=== PATIENT | male | born 1965 | race Caucasian/White ===

== ENCOUNTER 2018-01-04 08:11 | Emergency (ER) | payer OTHER, BC ==
[2018-01-04 08:16] VITALS: BP 136/87; TEMP 98.2; BMI 27.8
[2018-01-04] MEDS ORDERED: KETOROLAC TROMETHAMINE 60 MG/2 ML VIAL IM ONE (08:47)
[2018-01-04] MEDS ORDERED: KETOROLAC TROMETHAMINE 30 MG/1 ML VIAL ONE (08:52)
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
[2018-01-04 09:44] VITALS: PULSE 84
== END 2018-01-04 09:59 | disposition home or self-care (01) ==
LOC: JERFT 08:11
PROC: 3E0233Z Introduction of Anti-inflammatory into Muscle, Percutaneous Approach (ICD-10-PCS; principal; 2018-01-04)
DX: T14.8XXA Other injury of unspecified body region, initial encounter (principal); V49.9XXA Car occupant (driver) (passenger) injured in unspecified traffic accident, initial encounter; Y93.89 Activity, other specified; Y92.410 Unspecified street and highway as the place of occurrence of the external cause; I10 Essential (primary) hypertension
CPT/HCPCS: 72100-TC-FY; 99281-25

== ENCOUNTER → 2018-02-07 | Day surgery (SDC) | payer BC ==
--- NOTE | 2018-02-17 10:32 | PATH ---
Surgical Pathology Report Patient Name: BROOKLYN OLIVARES [facility]. Rec. #: [id number] /Age/Gender: 1965 (Age: 53) / M Account: [id number] Location: [facility] Taken: 02/07/2018 Received: 02/07/2018 Reported: 02/17/2018 Physicians: Arjun Fleming M.D. Specimen(s) Received RIGHT AXILLA LYMPH NODE 3.89 CM (ALSO RECEIVED TISSUE IN RPMI) Clinical History Palpable mass Ultrasound findings: Suspicious Final Diagnosis AXILLARY LYMPH NODE, RIGHT, CORE BIOPSY. CLASSIC HODGKIN LYMPHOMA. SEE COMMENT. Comments: Histologic sections show two cores of lymphoid tissue. There are numerous histiocytes and small lymphocytes in a mostly diffuse pattern. Scattered large atypical cells with irregular nuclear contours, fine chromatin, and prominent nucleoli are present. Immunohistochemical stains are performed with appropriate controls. The large atypical cells are positive for CD30, MUM-1, dim PAX5, dim OCT 2, and variable CD20. They are negative for CD15 and CD79a. A stain for CD3 highlights numerous small background lymphocytes. In-situ hybridization for STEPHANIE is positive in the large atypical cells. Concurrent flow cytometry shows no evidence of B or T-cell proliferative disorders ([id number]). AFB and PAS special stains performed and interpreted at [facility] are negative for Acid fast bacilli and fungal organisms. Accurate subtyping of this Hodgkin lymphoma is not possible due to the scant amount of material. This case was sent to Dr. Ulysses Mcgowan from [facility], [place], [place] ([id number]) for hematopathology consultation, the diagnosis above reflects his opinion. Findings discussed with Dr. Barnett. See [facility] report ([id number] and [id number]) for additional details. Electronically Signed Evette Saldaña M.D. Gross Description Received in formalin labeled "right axilla," are 3 bazzi-yellow, cylindrical portions of fibroadipose tissue ranging from 0.3-2.0 cm in length and averaging 0.1 cm in diameter. The specimens are submitted in toto in one cassette. Time to formalin fixation: Less than one minute Total formalin fixation time: Approximately 8 hours. DL/02/07/2018 saudi02/07/2018
== END | disposition home or self-care (01) ==
LOC: JRADUS-SUR 09:49
PROVIDERS: ATTEND Surgery
PROC: 07D53ZX Extraction of Right Axillary Lymphatic, Percutaneous Approach, Diagnostic (ICD-10-PCS; principal; 2018-02-07)
DX: C81.74 Other Hodgkin lymphoma, lymph nodes of axilla and upper limb (principal)
CPT/HCPCS: 19083; 87899; 88305-TC; 88312-TC; A4648

== ENCOUNTER 2018-03-23 07:39 | Day surgery (SDC) | payer BC ==
[2018-03-22 10:38] VITALS: BMI 26.6
[2018-03-23 08:08] LABS: BASO % 0.9 % (0-2.0); EOS % 2.7 % (0-4.5); HEMATOCRIT 40.4 % (35.4-49); HEMOGLOBIN 12.9 GM/dL (11.7-16.9); LYMPH % 39.8 % (8-40); MCH 24.5 pg (25.7-33.7); MEAN CELL VOLUME 76.4 fl (80-96); MEAN PLT VOLUME 7.5 fl (7.5-11.1); MONO % 10.5 % (3.8-10.2); NEUT % 46.1 % (42.8-82.8); PLATELET COUNT 180 K/MM3 (134-434); RBC 5.28 M/mm3 (4.00-5.60); RDW 18.1 % (11.9-15.9); WHITE BLOOD COUNT 7.5 K/mm3 (4.0-10.0)
[2018-03-23 08:14] LABS: INR 0.96 (0.83-1.09); PROTHROMBIN TIME (PATIENT) 11.3 SEC (9.7-13.0)
[2018-03-23] MEDS ORDERED: SODIUM CHLORIDE 500 ML IV ONE ×2 (09:00→12:30)
[2018-03-23] MEDS ORDERED: PORTA CATH FLUSH 10 ML IVPUSH PRN (09:36)
[2018-03-23] MEDS ORDERED: PALONOSETRON HCL 0.25 MG/5 ML VIAL IVPUSH ONE (10:00)
[2018-03-23] MEDS ORDERED: DEXAMETHASONE INJECTION 10 MG in SODIUM CHLORIDE 50 ML IVPB ONE (10:00)
[2018-03-23] MEDS ORDERED: FOSAPREPITANT DIMEGLUMINE 150 MG in SODIUM CHLORIDE 150 ML IVPB ONE (10:00)
[2018-03-23] MEDS ORDERED: BLEOMYCIN SULFATE 15 UNIT VIAL SQ ONE (10:30)
[2018-03-23] MEDS ORDERED: DOXOrubicin HCL 50 MG/25 ML VIAL IV ONE (10:30)
[2018-03-23] MEDS ORDERED: MIDAZOLAM HCL 2 MG/2 ML SINGLE DOSE VIAL ONE (10:34)
[2018-03-23] MEDS ORDERED: BLEOMYCIN SULFATE 17 UNIT in SODIUM CHLORIDE 50 ML IVPB ONE (11:00)
[2018-03-23] MEDS ORDERED: SODIUM CHLORIDE IVPB ONE (11:15)
[2018-03-23] MEDS ORDERED: VINBLASTINE SULFATE IVPB ONE (11:15)
[2018-03-23] MEDS ORDERED: WATER IVPB ONE (11:30)
[2018-03-23] MEDS ORDERED: DEXTROSE 5% IVPB ONE (11:30)
[2018-03-23] MEDS ORDERED: DACARBAZINE IVPB ONE (11:30)
[2018-03-23] MEDS ORDERED: ACETAMINOPHEN 325 MG TABLET (FP) PO ONE (15:30)
[2018-03-23] MEDS ORDERED: PORTA CATH FLUSH 10 ML IVPUSH ONE (16:46)
[2018-03-23 19:12] VITALS: BP 118/72; PULSE 80; TEMP 97.9
== END 2018-03-23 19:15 | disposition home or self-care (01) ==
LOC: JRADIR 07:39 → J7W 13:23 → JRADIR 19:15
PROVIDERS: ATTEND Internal Medicine Hematology & Oncology
PROC: 05H533Z Insertion of Infusion Device into Right Subclavian Vein, Percutaneous Approach (ICD-10-PCS; principal; 2018-03-23)
PROC: B516ZZA Fluoroscopy of Right Subclavian Vein, Guidance (ICD-10-PCS; 2018-03-23)
PROC: 3E01305 Introduction of Other Antineoplastic into Subcutaneous Tissue, Percutaneous Approach (ICD-10-PCS; 2018-03-23)
DX: Z51.11 Encounter for antineoplastic chemotherapy (principal); C81.90 Hodgkin lymphoma, unspecified, unspecified site
CPT/HCPCS: 36558; 77001; 96361; 96367; 96375; 96401; 96411; 96413; C1751; 36415; 36561; 85025; 85610; 96372; 96415; 96417; C1788; J1100; J1453; J2469; J9040; J9130

== ENCOUNTER 2018-03-24 07:19 | Day surgery (SDC) | payer BC ==
[2018-03-24] MEDS ORDERED: PEGFILGRASTIM 6 MG/0.6 ML DISP.SYRIN SQ ONE (10:00)
[2018-03-24 18:03] VITALS: BP 148/82; PULSE 93; TEMP 97.9
== END 2018-03-24 14:30 | disposition home or self-care (01) ==
LOC: JONCCHEMO 07:19 → J7W 14:10 → JONCCHEMO 14:30
PROVIDERS: ATTEND Internal Medicine Hematology & Oncology
PROC: 3E013GC Introduction of Other Therapeutic Substance into Subcutaneous Tissue, Percutaneous Approach (ICD-10-PCS; principal; 2018-03-24)
DX: C81.90 Hodgkin lymphoma, unspecified, unspecified site (principal)
CPT/HCPCS: 96372; J2505

== ENCOUNTER 2018-04-06 07:11 | Day surgery (SDC) | payer BC ==
[2018-04-06] MEDS ORDERED: SODIUM CHLORIDE 500 ML IV ONE ×2 (09:00→12:05)
[2018-04-06 09:21] LABS: BASO % 0.7 % (0-2.0); EOS % 0.9 % (0-4.5); HEMATOCRIT 39.9 % (35.4-49); HEMOGLOBIN 13.2 GM/dL (11.7-16.9); LYMPH % 20.4 % (8-40); MCH 25.5 pg (25.7-33.7); MCHC 33.1 g/dl (32.0-35.9); MEAN CELL VOLUME 77.2 fl (80-96); MEAN PLT VOLUME 7.6 fl (7.5-11.1); MONO % 8.6 % (3.8-10.2); NEUT % 69.4 % (42.8-82.8); PLATELET COUNT 253 K/MM3 (134-434); RBC 5.17 M/mm3 (4.00-5.60); RDW 18.1 % (11.9-15.9)
[2018-04-06 09:59] LABS: ALBUMIN 3.3 g/dl (3.4-5.0); ALK PHOS 329 U/L (45-117); ANION GAP 9 MMOL/L (8-16); BILIRUBIN,DIRECT 0.1 mg/dL (0.0-0.2); BILIRUBIN,TOTAL 0.5 mg/dL (0.2-1); BLOOD UREA NITROGEN 10 mg/dL (7-18); CALCIUM 8.5 mg/dL (8.5-10.1); CHLORIDE 105 mmol/L (98-107); CO2 30 mmol/L (21-32); CREATININE 0.8 mg/dL (0.55-1.3); GLUCOSE,RANDOM 78 mg/dL (74-106); MAGNESIUM 2.5 mg/dL (1.8-2.4); POTASSIUM 4.5 mmol/L (3.5-5.1); SGOT/AST 41 U/L (15-37); SGPT/ALT 48 U/L (13-61); SODIUM 144 mmol/L (136-145); TOT PROT 7.2 g/dl (6.4-8.2)
[2018-04-06] MEDS ORDERED: DEXAMETHASONE INJECTION 10 MG in SODIUM CHLORIDE 50 ML IVPB ONE (10:00)
[2018-04-06] MEDS ORDERED: PALONOSETRON HCL 0.25 MG/5 ML VIAL IVPUSH ONE (10:00)
[2018-04-06] MEDS ORDERED: FOSAPREPITANT DIMEGLUMINE 150 MG in SODIUM CHLORIDE 150 ML IVPB ONE (10:00)
[2018-04-06] MEDS ORDERED: DOXOrubicin HCL 50 MG/25 ML VIAL IV ONE (10:30)
[2018-04-06] MEDS ORDERED: BLEOMYCIN SULFATE IVPB ONE (10:45)
[2018-04-06] MEDS ORDERED: SODIUM CHLORIDE IVPB ONE ×2 (10:45→11:00)
[2018-04-06 10:58] LABS: LDH 286 U/L (87-246); URIC ACID 5.3 mg/dL (2.6-7.2)
[2018-04-06] MEDS ORDERED: VINBLASTINE SULFATE IVPB ONE (11:00)
[2018-04-06] MEDS ORDERED: WATER IVPB ONE (11:05)
[2018-04-06] MEDS ORDERED: DEXTROSE 5% IVPB ONE (11:05)
[2018-04-06] MEDS ORDERED: DACARBAZINE IVPB ONE (11:05)
[2018-04-06 11:51] LABS: ANISOCYTOSIS 1+; MACROCYTOSIS 0; PLATELET ESTIMATE NORMAL
[2018-04-06 14:44] VITALS: BP 130/80; PULSE 80
[2018-04-06] MEDS ORDERED: PORTA CATH FLUSH 10 ML IVPUSH ONE (14:44)
[2018-04-06 14:56] VITALS: TEMP 97.9
== END 2018-04-06 14:59 | disposition home or self-care (01) ==
LOC: JONCCHEMO 07:11 → J7W 10:27 → JONCCHEMO 14:59
PROVIDERS: ATTEND Internal Medicine Hematology & Oncology
DX: Z51.11 Encounter for antineoplastic chemotherapy (principal); C81.90 Hodgkin lymphoma, unspecified, unspecified site
CPT/HCPCS: 36415; 80053; 80076; 83615; 83735; 84550; 85025; 85651; 94060-TC; 94726-TC; 94729-TC; 94760; 96361; 96367; 96375; 96411; 96413; 96417; J1100; J1453; J2469; J9040; J9130

== ENCOUNTER 2018-04-07 07:35 | Day surgery (SDC) | payer BC ==
[2018-04-07] MEDS ORDERED: PEGFILGRASTIM 6 MG/0.6 ML DISP.SYRIN SQ ONE (10:00)
[2018-04-07 13:36] VITALS: BP 124/71; PULSE 94; TEMP 98.7
== END 2018-04-07 13:45 | disposition home or self-care (01) ==
LOC: JONCCHEMO 07:35 → J7W 13:18 → JONCCHEMO 13:45
PROVIDERS: ATTEND Internal Medicine Hematology & Oncology
PROC: 3E013GC Introduction of Other Therapeutic Substance into Subcutaneous Tissue, Percutaneous Approach (ICD-10-PCS; principal; 2018-04-07)
DX: C81.90 Hodgkin lymphoma, unspecified, unspecified site (principal); Z76.89 Persons encountering health services in other specified circumstances
CPT/HCPCS: 96372; J2505

== ENCOUNTER 2018-04-20 07:26 | Day surgery (SDC) | payer BC ==
[2018-04-20] MEDS ORDERED: SODIUM CHLORIDE 500 ML IV ONE ×2 (08:00→11:00)
[2018-04-20] MEDS ORDERED: PALONOSETRON HCL 0.25 MG/5 ML VIAL IVPUSH ONE (08:30)
[2018-04-20] MEDS ORDERED: DEXAMETHASONE INJECTION 10 MG in SODIUM CHLORIDE 50 ML IVPB ONE (08:30)
[2018-04-20] MEDS ORDERED: FOSAPREPITANT DIMEGLUMINE 150 MG in SODIUM CHLORIDE 145 ML IVPB ONE (08:30)
[2018-04-20] MEDS ORDERED: SODIUM CHLORIDE IV ONE (09:00)
[2018-04-20] MEDS ORDERED: DOXORUBICIN HCL IV ONE (09:00)
[2018-04-20] MEDS ORDERED: DOXOrubicin HCL 50 MG/25 ML VIAL IV ONE (09:00)
[2018-04-20] MEDS ORDERED: SODIUM CHLORIDE IVPB ONE ×2 (09:30→09:45)
[2018-04-20] MEDS ORDERED: BLEOMYCIN SULFATE IVPB ONE (09:30)
[2018-04-20] MEDS ORDERED: VINBLASTINE SULFATE IVPB ONE (09:45)
[2018-04-20 09:46] LABS: BASO % 1.4 % (0-2.0); EOS % 2.1 % (0-4.5); HEMOGLOBIN 13.4 GM/dL (11.7-16.9); LYMPH % 14.1 % (8-40); MCH 25.7 pg (25.7-33.7); MCHC 32.8 g/dl (32.0-35.9); MEAN CELL VOLUME 78.4 fl (80-96); MONO % 7.1 % (3.8-10.2); NEUT % 75.3 % (42.8-82.8); PLATELET COUNT 266 K/MM3 (134-434); RBC 5.23 M/mm3 (4.00-5.60); WHITE BLOOD COUNT 14.3 K/mm3 (4.0-10.0)
[2018-04-20] MEDS ORDERED: DEXTROSE 5% IVPB ONE (10:00)
[2018-04-20] MEDS ORDERED: DACARBAZINE IVPB ONE (10:00)
[2018-04-20] MEDS ORDERED: WATER IVPB ONE (10:00)
[2018-04-20 10:23] LABS: ALBUMIN 3.6 g/dl (3.4-5.0); BILIRUBIN,DIRECT 0.1 mg/dL (0.0-0.2); BILIRUBIN,TOTAL 0.5 mg/dL (0.2-1); MAGNESIUM 2.5 mg/dL (1.8-2.4); TOT PROT 7.1 g/dl (6.4-8.2)
[2018-04-20 10:31] LABS: ALBUMIN 3.6 g/dl (3.4-5.0); ALK PHOS 311 U/L (45-117); ANION GAP 7 MMOL/L (8-16); BILIRUBIN,TOTAL 0.5 mg/dL (0.2-1); BLOOD UREA NITROGEN 12 mg/dL (7-18); CHLORIDE 103 mmol/L (98-107); CO2 31 mmol/L (21-32); CREATININE 0.9 mg/dL (0.55-1.3); GLUCOSE,RANDOM 99 mg/dL (74-106); LDH 304 U/L (87-246); POTASSIUM 4.6 mmol/L (3.5-5.1); SGOT/AST 45 U/L (15-37); SGPT/ALT 49 U/L (13-61); SODIUM 140 mmol/L (136-145); TOT PROT 7.2 g/dl (6.4-8.2); URIC ACID 4.3 mg/dL (2.6-7.2)
[2018-04-20 11:34] LABS: ANISOCYTOSIS 1+; MACROCYTOSIS 0; OVALOCYTE 1+; PLATELET ESTIMATE NORMAL
[2018-04-20 13:40] VITALS: TEMP 98.1
[2018-04-20] MEDS ORDERED: PORTA CATH FLUSH 10 ML IVPUSH ONE (14:38)
[2018-04-20 16:13] VITALS: BP 122/62; PULSE 84
[2018-04-21 08:06] LABS: IGA IMMUNOGLOBULIN 218 mg/dL (90-386); IGG IMMUNOGLOBULIN 832 mg/dL (700-1600); IGM IMMUNOGLOBULIN 106 mg/dL (20-172)
== END 2018-04-20 15:30 | disposition home or self-care (01) ==
LOC: JONCCHEMO 07:26 → J7W 09:39 → JONCCHEMO 15:30
PROVIDERS: ATTEND Internal Medicine Hematology & Oncology
PROC: 3E04305 Introduction of Other Antineoplastic into Central Vein, Percutaneous Approach (ICD-10-PCS; principal; 2018-04-20)
PROC: 3E043GC Introduction of Other Therapeutic Substance into Central Vein, Percutaneous Approach (ICD-10-PCS; 2018-04-20)
PROC: 3E0437Z Introduction of Electrolytic and Water Balance Substance into Central Vein, Percutaneous Approach (ICD-10-PCS; 2018-04-20)
DX: Z51.11 Encounter for antineoplastic chemotherapy (principal); C81.94 Hodgkin lymphoma, unspecified, lymph nodes of axilla and upper limb
CPT/HCPCS: 36415; 80053; 80076; 82150; 82784; 83615; 83690; 83735; 84550; 85025; 85651; 96361; 96367; 96375; 96411; 96413; 96417; J1100; J1453; J2469; J9040; J9130

== ENCOUNTER 2018-04-21 07:28 | Day surgery (SDC) | payer BC ==
[2018-04-21] MEDS ORDERED: PEGFILGRASTIM 6 MG/0.6 ML DISP.SYRIN SQ ONE (09:00)
[2018-04-21 15:47] VITALS: BP 136/76; PULSE 71; TEMP 97.9
== END 2018-04-21 13:45 | disposition home or self-care (01) ==
LOC: JONCCHEMO 07:28 → J7W 13:39 → JONCCHEMO 13:45
PROVIDERS: ATTEND Internal Medicine Hematology & Oncology
PROC: 3E013GC Introduction of Other Therapeutic Substance into Subcutaneous Tissue, Percutaneous Approach (ICD-10-PCS; principal; 2018-04-21)
DX: Z76.89 Persons encountering health services in other specified circumstances (principal); C81.94 Hodgkin lymphoma, unspecified, lymph nodes of axilla and upper limb
CPT/HCPCS: 96372; J2505

== ENCOUNTER 2018-05-03 07:37 | Day surgery (SDC) | payer BC ==
[2018-05-03] MEDS ORDERED: SODIUM CHLORIDE 500 ML IV ONE ×2 (09:00→12:15)
[2018-05-03 09:37] VITALS: BP 137/82; PULSE 77; TEMP 98.3
[2018-05-03] MEDS ORDERED: PORTA CATH FLUSH 10 ML IVPUSH ONE (09:38)
[2018-05-03] MEDS ORDERED: DEXAMETHASONE INJECTION 10 MG in SODIUM CHLORIDE 50 ML IVPB ONE (10:00)
[2018-05-03] MEDS ORDERED: PALONOSETRON HCL 0.25 MG/5 ML VIAL IVPUSH ONE (10:00)
[2018-05-03] MEDS ORDERED: FOSAPREPITANT DIMEGLUMINE 150 MG in SODIUM CHLORIDE 150 ML IVPB ONE (10:00)
[2018-05-03] MEDS ORDERED: DOXOrubicin HCL 50 MG/25 ML VIAL IV ONE (10:30)
[2018-05-03] MEDS ORDERED: BLEOMYCIN SULFATE IVPB ONE (10:45)
[2018-05-03] MEDS ORDERED: SODIUM CHLORIDE IVPB ONE ×2 (10:45→11:00)
[2018-05-03] MEDS ORDERED: VINBLASTINE SULFATE IVPB ONE (11:00)
[2018-05-03] MEDS ORDERED: WATER IVPB ONE (11:15)
[2018-05-03] MEDS ORDERED: DEXTROSE 5% IVPB ONE (11:15)
[2018-05-03] MEDS ORDERED: DACARBAZINE IVPB ONE (11:15)
[2018-05-03 12:28] LABS: ALBUMIN 3.2 g/dl (3.4-5.0); ALK PHOS 262 U/L (45-117); ANION GAP 6 MMOL/L (8-16); BILIRUBIN,TOTAL 0.4 mg/dL (0.2-1); BLOOD UREA NITROGEN 11 mg/dL (7-18); CALCIUM 8.6 mg/dL (8.5-10.1); CHLORIDE 106 mmol/L (98-107); CO2 28 mmol/L (21-32); CREATININE 0.7 mg/dL (0.55-1.3); GAMMA GLUTAMYL TRANSPEPTIDASE 439 U/L (5-85); GLUCOSE,RANDOM 98 mg/dL (74-106); LDH 183 U/L (87-246); MAGNESIUM 2.3 mg/dL (1.8-2.4); POTASSIUM 3.8 mmol/L (3.5-5.1); SGOT/AST 36 U/L (15-37); SGPT/ALT 50 U/L (13-61); SODIUM 141 mmol/L (136-145); TOT PROT 6.3 g/dl (6.4-8.2); URIC ACID 3.4 mg/dL (2.6-7.2)
[2018-05-04 06:06] LABS: HBsAG SCREEN Negative (Negative); HEP B CORE AB, TOT Negative (Negative); HEPATITIS B CORE ANTIBODY,IGM Negative (Negative)
== END 2018-05-03 16:00 | disposition home or self-care (01) ==
LOC: JONCCHEMO 07:37 → J7W 09:27 → JONCCHEMO 16:00
PROVIDERS: ATTEND Internal Medicine Hematology & Oncology
DX: Z51.11 Encounter for antineoplastic chemotherapy (principal); C81.94 Hodgkin lymphoma, unspecified, lymph nodes of axilla and upper limb
CPT/HCPCS: 36415; 80053; 82977; 83615; 83735; 84550; 86704; 86705; 86803; 87340; 96361; 96367; 96375; 96411; 96413; 96417; J1100; J1453; J2469; J9040; J9130

== ENCOUNTER 2018-05-05 07:38 | Day surgery (SDC) | payer BC ==
[2018-05-05] MEDS ORDERED: PEGFILGRASTIM 6 MG/0.6 ML DISP.SYRIN SQ ONE (11:00)
[2018-05-05 11:13] VITALS: BP 122/79; PULSE 89; TEMP 98.8
== END 2018-05-05 20:20 | disposition home or self-care (01) ==
LOC: JONCCHEMO 07:38 → J7W 10:01 → JONCCHEMO 20:20
PROVIDERS: ATTEND Internal Medicine Hematology & Oncology
PROC: 3E013GC Introduction of Other Therapeutic Substance into Subcutaneous Tissue, Percutaneous Approach (ICD-10-PCS; principal; 2018-05-05)
DX: C81.94 Hodgkin lymphoma, unspecified, lymph nodes of axilla and upper limb (principal); Z76.89 Persons encountering health services in other specified circumstances
CPT/HCPCS: 96372; J2505

== ENCOUNTER 2018-05-18 07:33 | Day surgery (SDC) | payer BC ==
[2018-05-18] MEDS ORDERED: SODIUM CHLORIDE 500 ML IV ONE ×2 (09:00→12:00)
[2018-05-18 09:33] LABS: BASO % 1.1 % (0-2.0); EOS % 2.2 % (0-4.5); HEMATOCRIT 38.7 % (35.4-49); HEMOGLOBIN 13.4 GM/dL (11.7-16.9); LYMPH % 15.4 % (8-40); MCH 27.8 pg (25.7-33.7); MCHC 34.5 g/dl (32.0-35.9); MEAN CELL VOLUME 80.4 fl (80-96); MEAN PLT VOLUME 8.1 fl (7.5-11.1); NEUT % 73.3 % (42.8-82.8); PLATELET COUNT 223 K/MM3 (134-434); RBC 4.81 M/mm3 (4.00-5.60); RDW 21.3 % (11.9-15.9); WHITE BLOOD COUNT 10.5 K/mm3 (4.0-10.0)
[2018-05-18] MEDS ORDERED: DEXAMETHASONE SODIUM PHOSPHATE 10 MG in SODIUM CHLORIDE 50 ML IVPB ONE (10:00)
[2018-05-18] MEDS ORDERED: FOSAPREPITANT DIMEGLUMINE 150 MG in SODIUM CHLORIDE 150 ML IVPB ONE (10:00)
[2018-05-18] MEDS ORDERED: PALONOSETRON HCL 0.25 MG/5 ML VIAL IVPUSH ONE (10:00)
[2018-05-18 10:05] LABS: ALBUMIN 3.4 g/dl (3.4-5.0); ALK PHOS 256 U/L (45-117); ANION GAP 8 MMOL/L (8-16); BILIRUBIN,DIRECT 0.1 mg/dL (0.0-0.2); BILIRUBIN,TOTAL 0.5 mg/dL (0.2-1); BLOOD UREA NITROGEN 12 mg/dL (7-18); CALCIUM 8.3 mg/dL (8.5-10.1); CHLORIDE 106 mmol/L (98-107); CO2 27 mmol/L (21-32); CREATININE 0.8 mg/dL (0.55-1.3); GLUCOSE,RANDOM 95 mg/dL (74-106); MAGNESIUM 2.3 mg/dL (1.8-2.4); SGOT/AST 41 U/L (15-37); SGPT/ALT 46 U/L (13-61); SODIUM 141 mmol/L (136-145); TOT PROT 6.7 g/dl (6.4-8.2)
[2018-05-18] MEDS ORDERED: DOXOrubicin HCL 50 MG/25 ML VIAL IV ONE (10:30)
[2018-05-18] MEDS ORDERED: BLEOMYCIN SULFATE IVPB ONE (10:45)
[2018-05-18] MEDS ORDERED: SODIUM CHLORIDE IVPB ONE ×2 (10:45→11:00)
[2018-05-18] MEDS ORDERED: VINBLASTINE SULFATE IVPB ONE (11:00)
[2018-05-18] MEDS ORDERED: DEXTROSE 5% IVPB ONE (11:05)
[2018-05-18] MEDS ORDERED: DACARBAZINE IVPB ONE (11:05)
[2018-05-18] MEDS ORDERED: WATER IVPB ONE (11:05)
[2018-05-18 14:23] LABS: ACANTHOCYTES 0; ANISOCYTOSIS 0; HELMET CELLS 0; HOWELL-JOLLY BODIES 0; MACROCYTOSIS 0; OVALOCYTE 0; PLATELET ESTIMATE NORMAL; ROULEAU 0; SICKELED CELLS 0; TARGET CELLS 0; TEAR DROP CELLS 0; TOXIC GRANULATION 0
[2018-05-18 15:45] VITALS: BP 129/66; PULSE 79; TEMP 98.5
[2018-05-18] MEDS ORDERED: PORTA CATH FLUSH 10 ML IVPUSH ONE (15:46)
== END 2018-05-18 15:49 | disposition home or self-care (01) ==
LOC: JONCCHEMO 07:33 → J7W 10:01 → JONCCHEMO 15:49
PROVIDERS: ATTEND Internal Medicine Hematology & Oncology
DX: Z51.11 Encounter for antineoplastic chemotherapy (principal); C81.94 Hodgkin lymphoma, unspecified, lymph nodes of axilla and upper limb
CPT/HCPCS: 36415; 80053; 80076; 83735; 85025; 96361; 96367; 96375; 96411; 96413; 96417; J1453; J2469; J9040; J9130

== ENCOUNTER 2018-05-19 07:30 | Day surgery (SDC) | payer BC ==
[2018-05-19] MEDS ORDERED: PEGFILGRASTIM 6 MG/0.6 ML DISP.SYRIN SQ ONE (10:00)
[2018-05-19 15:39] VITALS: BP 134/82; PULSE 91; TEMP 98.1
== END 2018-05-19 11:20 | disposition home or self-care (01) ==
LOC: JONCCHEMO 07:30 → J7W 10:56 → JONCCHEMO 11:20
PROVIDERS: ATTEND Internal Medicine Hematology & Oncology
PROC: 3E013GC Introduction of Other Therapeutic Substance into Subcutaneous Tissue, Percutaneous Approach (ICD-10-PCS; principal; 2018-05-19)
DX: C81.94 Hodgkin lymphoma, unspecified, lymph nodes of axilla and upper limb (principal); Z76.89 Persons encountering health services in other specified circumstances
CPT/HCPCS: 96372; J2505

== ENCOUNTER 2018-06-01 06:50 | Day surgery (SDC) | payer BC ==
[2018-06-01] MEDS ORDERED: SODIUM CHLORIDE 500 ML IV ONE ×2 (09:00→12:00)
[2018-06-01 09:08] LABS: BASO % 0.9 % (0-2.0); EOS % 2.9 % (0-4.5); HEMATOCRIT 37.3 % (35.4-49); HEMOGLOBIN 12.9 GM/dL (11.7-16.9); LYMPH % 16.1 % (8-40); MCH 28.1 pg (25.7-33.7); MCHC 34.6 g/dl (32.0-35.9); MEAN PLT VOLUME 8.4 fl (7.5-11.1); NEUT % 73.1 % (42.8-82.8); PLATELET COUNT 208 K/MM3 (134-434); RBC 4.61 M/mm3 (4.00-5.60); RDW 21.9 % (11.9-15.9); WHITE BLOOD COUNT 11.9 K/mm3 (4.0-10.0)
[2018-06-01 09:36] LABS: ALBUMIN 3.4 g/dl (3.4-5.0); ALK PHOS 290 U/L (45-117); ANION GAP 6 MMOL/L (8-16); BILIRUBIN,DIRECT 0.2 mg/dL (0.0-0.2); BILIRUBIN,TOTAL 0.5 mg/dL (0.2-1); BLOOD UREA NITROGEN 10 mg/dL (7-18); CALCIUM 8.6 mg/dL (8.5-10.1); CHLORIDE 105 mmol/L (98-107); CO2 29 mmol/L (21-32); CREATININE 0.8 mg/dL (0.55-1.3); GLUCOSE,RANDOM 102 mg/dL (74-106); LDH 214 U/L (87-246); MAGNESIUM 2.2 mg/dL (1.8-2.4); POTASSIUM 3.9 mmol/L (3.5-5.1); SGOT/AST 55 U/L (15-37); SGPT/ALT 54 U/L (13-61); SODIUM 140 mmol/L (136-145); TOT PROT 6.5 g/dl (6.4-8.2); URIC ACID 3.7 mg/dL (2.6-7.2)
[2018-06-01] MEDS ORDERED: PALONOSETRON HCL 0.25 MG/5 ML VIAL IVPUSH ONE (10:00)
[2018-06-01] MEDS ORDERED: FOSAPREPITANT DIMEGLUMINE 150 MG in SODIUM CHLORIDE 150 ML IVPB ONE (10:00)
[2018-06-01] MEDS ORDERED: DEXAMETHASONE SODIUM PHOSPHATE 10 MG in SODIUM CHLORIDE 50 ML IVPB ONE (10:00)
[2018-06-01 10:19] VITALS: TEMP 97.9
[2018-06-01] MEDS ORDERED: PORTA CATH FLUSH 10 ML IVPUSH ONE (10:19)
[2018-06-01] MEDS ORDERED: DOXOrubicin HCL 50 MG/25 ML VIAL IV ONE (10:30)
[2018-06-01] MEDS ORDERED: SODIUM CHLORIDE IVPB ONE ×2 (10:45→11:00)
[2018-06-01] MEDS ORDERED: BLEOMYCIN SULFATE IVPB ONE (10:45)
[2018-06-01] MEDS ORDERED: VINBLASTINE SULFATE IVPB ONE (11:00)
[2018-06-01] MEDS ORDERED: DACARBAZINE IVPB ONE (11:05)
[2018-06-01] MEDS ORDERED: DEXTROSE 5% IVPB ONE (11:05)
[2018-06-01] MEDS ORDERED: WATER IVPB ONE (11:05)
[2018-06-01 12:09] LABS: ANISOCYTOSIS 2+; MACROCYTOSIS 1+; PLATELET ESTIMATE NORMAL
[2018-06-01 16:43] VITALS: BP 117/73; PULSE 82
[2018-06-02 15:21] LABS: BETA-2-MICROGLOBULIN 3.1 mg/L (0.6-2.4)
== END 2018-06-01 14:35 | disposition home or self-care (01) ==
LOC: JONCCHEMO 06:50 → J7W 09:19 → JONCCHEMO 14:35
PROVIDERS: ATTEND Internal Medicine Hematology & Oncology
PROC: 3E04305 Introduction of Other Antineoplastic into Central Vein, Percutaneous Approach (ICD-10-PCS; principal; 2018-06-01)
PROC: 3E043GC Introduction of Other Therapeutic Substance into Central Vein, Percutaneous Approach (ICD-10-PCS; 2018-06-01)
PROC: 3E0437Z Introduction of Electrolytic and Water Balance Substance into Central Vein, Percutaneous Approach (ICD-10-PCS; 2018-06-01)
DX: Z51.11 Encounter for antineoplastic chemotherapy (principal); C81.94 Hodgkin lymphoma, unspecified, lymph nodes of axilla and upper limb
CPT/HCPCS: 36415; 80053; 80076; 82232; 82784; 83615; 83735; 84550; 85025; 96361; 96367; 96375; 96411; 96413; 96417; J1453; J2469; J9040; J9130

== ENCOUNTER 2018-06-02 05:34 | Day surgery (SDC) | payer BC ==
[2018-06-02] MEDS ORDERED: PEGFILGRASTIM 6 MG/0.6 ML DISP.SYRIN SQ ONE (10:00)
[2018-06-02 14:48] VITALS: BP 131/76; PULSE 104; TEMP 98.2
== END 2018-06-02 12:45 | disposition home or self-care (01) ==
LOC: JONCCHEMO 05:34 → J7W 12:46
PROVIDERS: ATTEND Internal Medicine Hematology & Oncology
PROC: 3E013GC Introduction of Other Therapeutic Substance into Subcutaneous Tissue, Percutaneous Approach (ICD-10-PCS; principal; 2018-06-02)
DX: C81.94 Hodgkin lymphoma, unspecified, lymph nodes of axilla and upper limb (principal); Z76.89 Persons encountering health services in other specified circumstances
CPT/HCPCS: 96372; J2505

== ENCOUNTER 2018-06-14 07:44 | Day surgery (SDC) | payer BC ==
[2018-06-14] MEDS ORDERED: SODIUM CHLORIDE 500 ML IV ONE ×2 (08:00→11:00)
[2018-06-14] MEDS ORDERED: DEXAMETHASONE SODIUM PHOSPHATE 10 MG in SODIUM CHLORIDE 50 ML IVPB ONE (08:30)
[2018-06-14] MEDS ORDERED: FOSAPREPITANT DIMEGLUMINE 150 MG in SODIUM CHLORIDE 145 ML IVPB ONE (08:30)
[2018-06-14] MEDS ORDERED: PALONOSETRON HCL 0.25 MG/5 ML VIAL IVPUSH ONE (08:30)
[2018-06-14] MEDS ORDERED: DOXOrubicin HCL 50 MG/25 ML VIAL IV ONE (09:00)
[2018-06-14] MEDS ORDERED: SODIUM CHLORIDE IVPB ONE ×2 (09:15→09:30)
[2018-06-14] MEDS ORDERED: BLEOMYCIN SULFATE IVPB ONE (09:15)
[2018-06-14] MEDS ORDERED: VINBLASTINE SULFATE IVPB ONE (09:30)
[2018-06-14] MEDS ORDERED: DEXTROSE 5% IVPB ONE (09:45)
[2018-06-14] MEDS ORDERED: DACARBAZINE IVPB ONE (09:45)
[2018-06-14] MEDS ORDERED: WATER IVPB ONE (09:45)
[2018-06-14 17:28] VITALS: BP 123/78; PULSE 85; TEMP 98
== END 2018-06-14 15:00 | disposition home or self-care (01) ==
LOC: JONCCHEMO 07:44 → J7W 09:08 → JONCCHEMO 15:00
PROVIDERS: ATTEND Internal Medicine Hematology & Oncology
PROC: 3E04305 Introduction of Other Antineoplastic into Central Vein, Percutaneous Approach (ICD-10-PCS; principal; 2018-06-14)
PROC: 3E043GC Introduction of Other Therapeutic Substance into Central Vein, Percutaneous Approach (ICD-10-PCS; 2018-06-14)
PROC: 3E0437Z Introduction of Electrolytic and Water Balance Substance into Central Vein, Percutaneous Approach (ICD-10-PCS; 2018-06-14)
PROC: 3E04305 Introduction of Other Antineoplastic into Central Vein, Percutaneous Approach (ICD-10-PCS; 2018-06-14)
DX: Z51.11 Encounter for antineoplastic chemotherapy (principal); C81.94 Hodgkin lymphoma, unspecified, lymph nodes of axilla and upper limb; I10 Essential (primary) hypertension; E78.5 Hyperlipidemia, unspecified; K76.0 Fatty (change of) liver, not elsewhere classified
CPT/HCPCS: 96361; 96367; 96375; 96409; 96411; 96413; 96417; J1453; J2469; J9040; J9130

== ENCOUNTER 2018-06-15 07:08 | Day surgery (SDC) | payer BC ==
[2018-06-15] MEDS ORDERED: PEGFILGRASTIM 6 MG/0.6 ML DISP.SYRIN SQ ONE (09:00)
[2018-06-15 14:24] VITALS: BP 117/76; PULSE 80; TEMP 97.8
== END 2018-06-15 13:05 | disposition home or self-care (01) ==
LOC: JONCCHEMO 07:08 → J7W 13:24
PROVIDERS: ATTEND Internal Medicine Hematology & Oncology
PROC: 3E013GC Introduction of Other Therapeutic Substance into Subcutaneous Tissue, Percutaneous Approach (ICD-10-PCS; principal; 2018-06-15)
DX: C81.94 Hodgkin lymphoma, unspecified, lymph nodes of axilla and upper limb (principal); Z76.89 Persons encountering health services in other specified circumstances
CPT/HCPCS: 96372; J2505

== ENCOUNTER 2018-06-29 07:12 | Day surgery (SDC) | payer BC ==
[2018-06-29] MEDS ORDERED: SODIUM CHLORIDE 500 ML IV ONE ×2 (08:00→10:45)
[2018-06-29] MEDS ORDERED: PALONOSETRON HCL 0.25 MG/5 ML VIAL IVPUSH ONE (08:30)
[2018-06-29] MEDS ORDERED: FOSAPREPITANT DIMEGLUMINE 150 MG in SODIUM CHLORIDE 145 ML IVPB ONE (08:30)
[2018-06-29] MEDS ORDERED: DEXAMETHASONE SODIUM PHOSPHATE 10 MG in SODIUM CHLORIDE 50 ML IVPB ONE (08:30)
[2018-06-29] MEDS ORDERED: DOXOrubicin HCL 50 MG/25 ML VIAL IV ONE (09:00)
[2018-06-29 09:13] LABS: BASO % 0.9 % (0-2.0); EOS % 2.5 % (0-4.5); HEMATOCRIT 37.2 % (35.4-49); LYMPH % 16.9 % (8-40); MCH 29.4 pg (25.7-33.7); MCHC 34.9 g/dl (32.0-35.9); MEAN CELL VOLUME 84.3 fl (80-96); MEAN PLT VOLUME 8.7 fl (7.5-11.1); MONO % 6.8 % (3.8-10.2); NEUT % 72.9 % (42.8-82.8); PLATELET COUNT 197 K/MM3 (134-434); RBC 4.42 M/mm3 (4.00-5.60); WHITE BLOOD COUNT 10.6 K/mm3 (4.0-10.0)
[2018-06-29] MEDS ORDERED: BLEOMYCIN SULFATE IVPB ONE (09:15)
[2018-06-29] MEDS ORDERED: SODIUM CHLORIDE IVPB ONE ×2 (09:15→09:30)
[2018-06-29] MEDS ORDERED: VINBLASTINE SULFATE IVPB ONE (09:30)
[2018-06-29] MEDS ORDERED: DACARBAZINE IVPB ONE (09:45)
[2018-06-29] MEDS ORDERED: DEXTROSE 5% IVPB ONE (09:45)
[2018-06-29] MEDS ORDERED: WATER IVPB ONE (09:45)
[2018-06-29 09:49] LABS: ALBUMIN 3.5 g/dl (3.4-5.0); ALK PHOS 286 U/L (45-117); ANION GAP 8 MMOL/L (8-16); BILIRUBIN,DIRECT 0.1 mg/dL (0.0-0.2); BILIRUBIN,TOTAL 0.7 mg/dL (0.2-1); BLOOD UREA NITROGEN 13 mg/dL (7-18); CALCIUM 8.7 mg/dL (8.5-10.1); CHLORIDE 104 mmol/L (98-107); CO2 28 mmol/L (21-32); CREATININE 0.8 mg/dL (0.55-1.3); GLUCOSE,RANDOM 107 mg/dL (74-106); MAGNESIUM 2.3 mg/dL (1.8-2.4); POTASSIUM 4.1 mmol/L (3.5-5.1); SGOT/AST 47 U/L (15-37); SGPT/ALT 58 U/L (13-61); SODIUM 141 mmol/L (136-145); TOT PROT 6.4 g/dl (6.4-8.2); URIC ACID 4.2 mg/dL (2.6-7.2)
[2018-06-29 10:10] LABS: LDH 206 U/L (87-246)
[2018-06-29 11:33] LABS: ANISOCYTOSIS 1+; MACROCYTOSIS 1+; PLATELET ESTIMATE NORMAL; TEAR DROP CELLS 1+
[2018-06-29 15:31] VITALS: BP 140/81; PULSE 88; TEMP 98
[2018-06-29] MEDS ORDERED: PORTA CATH FLUSH 10 ML IVPUSH ONE (15:31)
[2018-06-30 15:32] LABS: BETA-2-MICROGLOBULIN 2.8 mg/L (0.6-2.4)
== END 2018-06-29 15:35 | disposition home or self-care (01) ==
LOC: JONCCHEMO 07:12 → J7W 09:25 → JONCCHEMO 15:35
PROVIDERS: ATTEND Internal Medicine Hematology & Oncology
DX: Z51.11 Encounter for antineoplastic chemotherapy (principal); C81.94 Hodgkin lymphoma, unspecified, lymph nodes of axilla and upper limb
CPT/HCPCS: 36415; 80048; 80076; 82232; 82784; 83615; 83735; 84550; 85025; 96361; 96367; 96375; 96411; 96413; 96417; J1453; J2469; J9040; J9130

== ENCOUNTER 2018-06-30 06:44 | Day surgery (SDC) | payer BC ==
[2018-06-30] MEDS ORDERED: PEGFILGRASTIM 6 MG/0.6 ML DISP.SYRIN SQ ONE (08:00)
[2018-06-30 14:15] VITALS: BP 133/82; PULSE 89; TEMP 98.4
== END 2018-06-30 12:40 | disposition home or self-care (01) ==
LOC: JONCCHEMO 06:44 → J7W 12:23 → JONCCHEMO 12:40
PROVIDERS: ATTEND Internal Medicine Hematology & Oncology
PROC: 3E013GC Introduction of Other Therapeutic Substance into Subcutaneous Tissue, Percutaneous Approach (ICD-10-PCS; principal; 2018-06-30)
DX: C81.94 Hodgkin lymphoma, unspecified, lymph nodes of axilla and upper limb (principal); Z76.89 Persons encountering health services in other specified circumstances
CPT/HCPCS: 96372; J2505

== ENCOUNTER 2018-07-13 07:02 | Day surgery (SDC) | payer BC ==
[2018-07-13] MEDS ORDERED: SODIUM CHLORIDE 500 ML IV ONE ×2 (09:00→12:00)
[2018-07-13 09:08] LABS: BASO % 0.8 % (0-2.0); EOS % 2.6 % (0-4.5); HEMATOCRIT 38.1 % (35.4-49); HEMOGLOBIN 12.9 GM/dL (11.7-16.9); LYMPH % 16.9 % (8-40); MCH 29.3 pg (25.7-33.7); MCHC 33.9 g/dl (32.0-35.9); MEAN CELL VOLUME 86.6 fl (80-96); MEAN PLT VOLUME 8.3 fl (7.5-11.1); MONO % 7.1 % (3.8-10.2); NEUT % 72.6 % (42.8-82.8); PLATELET COUNT 203 K/MM3 (134-434); RDW 19.2 % (11.9-15.9); WHITE BLOOD COUNT 9.5 K/mm3 (4.0-10.0)
[2018-07-13 09:37] LABS: ALBUMIN 3.6 g/dl (3.4-5.0); ALK PHOS 289 U/L (45-117); ANION GAP 7 MMOL/L (8-16); BILIRUBIN,DIRECT 0.1 mg/dL (0.0-0.2); BILIRUBIN,TOTAL 0.6 mg/dL (0.2-1); BLOOD UREA NITROGEN 13 mg/dL (7-18); CHLORIDE 104 mmol/L (98-107); CO2 29 mmol/L (21-32); CREATININE 0.9 mg/dL (0.55-1.3); GLUCOSE,RANDOM 102 mg/dL (74-106); MAGNESIUM 2.3 mg/dL (1.8-2.4); POTASSIUM 3.9 mmol/L (3.5-5.1); SGOT/AST 50 U/L (15-37); SGPT/ALT 57 U/L (13-61); SODIUM 140 mmol/L (136-145); TOT PROT 6.5 g/dl (6.4-8.2); URIC ACID 4.1 mg/dL (2.6-7.2)
[2018-07-13 09:53] LABS: LDH 229 U/L (87-246)
[2018-07-13] MEDS ORDERED: DEXAMETHASONE SODIUM PHOSPHATE 10 MG in SODIUM CHLORIDE 50 ML IVPB ONE (10:00)
[2018-07-13] MEDS ORDERED: FOSAPREPITANT DIMEGLUMINE 150 MG in SODIUM CHLORIDE 150 ML IVPB ONE (10:00)
[2018-07-13] MEDS ORDERED: PALONOSETRON HCL 0.25 MG/5 ML VIAL IVPUSH ONE (10:00)
[2018-07-13] MEDS ORDERED: DOXOrubicin HCL 50 MG/25 ML VIAL IV ONE (10:30)
[2018-07-13] MEDS ORDERED: SODIUM CHLORIDE IVPB ONE ×2 (10:45→11:00)
[2018-07-13] MEDS ORDERED: BLEOMYCIN SULFATE IVPB ONE (10:45)
[2018-07-13] MEDS ORDERED: VINBLASTINE SULFATE IVPB ONE (11:00)
[2018-07-13] MEDS ORDERED: DEXTROSE 5% IVPB ONE (11:05)
[2018-07-13] MEDS ORDERED: WATER IVPB ONE (11:05)
[2018-07-13] MEDS ORDERED: DACARBAZINE IVPB ONE (11:05)
[2018-07-13 11:14] LABS: ANISOCYTOSIS 1+; MACROCYTOSIS 0; PLATELET ESTIMATE NORMAL
[2018-07-13 15:52] VITALS: TEMP 97.9
[2018-07-13 16:13] VITALS: BP 120/72; PULSE 86
[2018-07-13] MEDS ORDERED: PORTA CATH FLUSH 10 ML IVPUSH ONE (16:13)
[2018-07-14 15:18] LABS: BETA-2-MICROGLOBULIN 2.7 mg/L (0.6-2.4)
== END 2018-07-13 15:45 | disposition home or self-care (01) ==
LOC: JONCCHEMO 07:02 → J7W 10:15 → JONCCHEMO 15:45
PROVIDERS: ATTEND Internal Medicine Hematology & Oncology
DX: Z51.11 Encounter for antineoplastic chemotherapy (principal); C81.94 Hodgkin lymphoma, unspecified, lymph nodes of axilla and upper limb
CPT/HCPCS: 36415; 80048; 80076; 82232; 82784; 83615; 83735; 84550; 85025; 96361; 96367; 96375; 96411; 96413; 96417; J1453; J2469; J9040; J9130

== ENCOUNTER 2018-07-14 07:08 | Day surgery (SDC) | payer BC ==
[2018-07-14] MEDS ORDERED: PEGFILGRASTIM 6 MG/0.6 ML DISP.SYRIN SQ ONE (10:00)
[2018-07-14 14:40] VITALS: BP 115/57; PULSE 79; TEMP 97.8
== END 2018-07-14 14:00 | disposition home or self-care (01) ==
LOC: JONCCHEMO 07:08 → J7W 13:31 → JONCCHEMO 14:00
PROVIDERS: ATTEND Internal Medicine Hematology & Oncology
PROC: 3E013GC Introduction of Other Therapeutic Substance into Subcutaneous Tissue, Percutaneous Approach (ICD-10-PCS; principal; 2018-07-14)
DX: C81.94 Hodgkin lymphoma, unspecified, lymph nodes of axilla and upper limb (principal); Z76.89 Persons encountering health services in other specified circumstances
CPT/HCPCS: 96372; J2505

== ENCOUNTER 2018-07-27 07:11 | Day surgery (SDC) | payer BC ==
[2018-07-27] MEDS ORDERED: SODIUM CHLORIDE 500 ML IV ONE ×2 (09:00→12:00)
[2018-07-27 09:11] LABS: BASO % 0.8 % (0-2.0); EOS % 3.4 % (0-4.5); HEMATOCRIT 41.2 % (35.4-49); HEMOGLOBIN 13.7 GM/dL (11.7-16.9); LYMPH % 11.7 % (8-40); MCH 29.3 pg (25.7-33.7); MCHC 33.2 g/dl (32.0-35.9); MEAN CELL VOLUME 88.3 fl (80-96); MEAN PLT VOLUME 8.6 fl (7.5-11.1); MONO % 6.6 % (3.8-10.2); NEUT % 77.5 % (42.8-82.8); PLATELET COUNT 203 K/MM3 (134-434); RBC 4.67 M/mm3 (4.00-5.60); RDW 18.3 % (11.9-15.9); WHITE BLOOD COUNT 11.5 K/mm3 (4.0-10.0)
[2018-07-27 09:27] LABS: ALBUMIN 3.5 g/dl (3.4-5.0); BILIRUBIN,DIRECT 0.1 mg/dL (0.0-0.2); BILIRUBIN,TOTAL 0.5 mg/dL (0.2-1); MAGNESIUM 2.5 mg/dL (1.8-2.4); TOT PROT 6.9 g/dl (6.4-8.2)
[2018-07-27 09:35] LABS: ALBUMIN 3.7 g/dl (3.4-5.0); ALK PHOS 333 U/L (45-117); ANION GAP 8 MMOL/L (8-16); BILIRUBIN,TOTAL 0.5 mg/dL (0.2-1); BLOOD UREA NITROGEN 12 mg/dL (7-18); CALCIUM 8.6 mg/dL (8.5-10.1); CHLORIDE 104 mmol/L (98-107); CO2 28 mmol/L (21-32); CREATININE 0.8 mg/dL (0.55-1.3); GLUCOSE,RANDOM 109 mg/dL (74-106); POTASSIUM 4.3 mmol/L (3.5-5.1); SGOT/AST 52 U/L (15-37); SGPT/ALT 57 U/L (13-61); SODIUM 141 mmol/L (136-145); TOT PROT 6.9 g/dl (6.4-8.2)
[2018-07-27] MEDS ORDERED: DEXAMETHASONE SODIUM PHOSPHATE 10 MG in SODIUM CHLORIDE 50 ML IVPB ONE (10:00)
[2018-07-27] MEDS ORDERED: FOSAPREPITANT DIMEGLUMINE 150 MG in SODIUM CHLORIDE 150 ML IVPB ONE (10:00)
[2018-07-27] MEDS ORDERED: PALONOSETRON HCL 0.25 MG/5 ML VIAL IVPUSH ONE (10:00)
[2018-07-27] MEDS ORDERED: DOXOrubicin HCL 50 MG/25 ML VIAL IV ONE (10:30)
[2018-07-27] MEDS ORDERED: BLEOMYCIN SULFATE IVPB ONE (10:45)
[2018-07-27] MEDS ORDERED: SODIUM CHLORIDE IVPB ONE (10:45)
[2018-07-27] MEDS ORDERED: WATER IVPB ONE (11:00)
[2018-07-27] MEDS ORDERED: DACARBAZINE IVPB ONE (11:00)
[2018-07-27] MEDS ORDERED: DEXTROSE 5% IVPB ONE (11:00)
[2018-07-27 12:01] LABS: ANISOCYTOSIS 1+; MACROCYTOSIS 0; PLATELET ESTIMATE NORMAL; TEAR DROP CELLS 1+
[2018-07-27] MEDS ORDERED: PORTA CATH FLUSH 10 ML IVPUSH ONE (16:03)
[2018-07-27 16:04] VITALS: TEMP 98
[2018-07-27 16:05] VITALS: BP 118/73; PULSE 80
== END 2018-07-27 14:35 | disposition home or self-care (01) ==
LOC: JONCCHEMO 07:11 → J7W 09:29 → JONCCHEMO 14:35
PROVIDERS: ATTEND Internal Medicine Hematology & Oncology
DX: Z51.11 Encounter for antineoplastic chemotherapy (principal); C81.94 Hodgkin lymphoma, unspecified, lymph nodes of axilla and upper limb
CPT/HCPCS: 36415; 80053; 80076; 83735; 85025; 96361; 96367; 96375; 96411; 96413; 96415; 96417; J1453; J2469; J9040; J9130

== ENCOUNTER 2018-07-28 07:02 | Day surgery (SDC) | payer BC ==
[2018-07-28] MEDS ORDERED: PEGFILGRASTIM 6 MG/0.6 ML DISP.SYRIN SQ ONE (10:00)
[2018-07-28 15:17] VITALS: BP 131/77; PULSE 89; TEMP 98.1
== END 2018-07-28 12:20 | disposition home or self-care (01) ==
LOC: JONCCHEMO 07:02
PROVIDERS: ATTEND Internal Medicine Hematology & Oncology
PROC: 3E013GC Introduction of Other Therapeutic Substance into Subcutaneous Tissue, Percutaneous Approach (ICD-10-PCS; principal; 2018-07-28)
DX: C81.94 Hodgkin lymphoma, unspecified, lymph nodes of axilla and upper limb (principal); Z76.89 Persons encountering health services in other specified circumstances
CPT/HCPCS: 96372; J2505

== ENCOUNTER 2018-08-10 05:46 | Day surgery (SDC) | payer BC ==
[2018-08-10] MEDS ORDERED: SODIUM CHLORIDE 500 ML IV ONE ×2 (08:00→10:30)
[2018-08-10 08:30] VITALS: TEMP 98.4
[2018-08-10] MEDS ORDERED: DEXAMETHASONE SODIUM PHOSPHATE 10 MG in SODIUM CHLORIDE 50 ML IVPB ONE (08:30)
[2018-08-10] MEDS ORDERED: FOSAPREPITANT DIMEGLUMINE 150 MG in SODIUM CHLORIDE 145 ML IVPB ONE (08:30)
[2018-08-10] MEDS ORDERED: PALONOSETRON HCL 0.25 MG/5 ML VIAL IVPUSH ONE (08:30)
[2018-08-10 08:56] LABS: BASO % 1.2 % (0-2.0); EOS % 3.2 % (0-4.5); HEMATOCRIT 38.8 % (35.4-49); HEMOGLOBIN 13.2 GM/dL (11.7-16.9); LYMPH % 17.1 % (8-40); MCH 29.9 pg (25.7-33.7); MEAN CELL VOLUME 87.8 fl (80-96); MEAN PLT VOLUME 9.1 fl (7.5-11.1); MONO % 8.7 % (3.8-10.2); NEUT % 69.8 % (42.8-82.8); PLATELET COUNT 159 K/MM3 (134-434); RBC 4.42 M/mm3 (4.00-5.60); RDW 17.3 % (11.9-15.9); WHITE BLOOD COUNT 5.9 K/mm3 (4.0-10.0)
[2018-08-10] MEDS ORDERED: DOXOrubicin HCL 50 MG/25 ML VIAL IV ONE (09:00)
[2018-08-10] MEDS ORDERED: SODIUM CHLORIDE IVPB ONE (09:15)
[2018-08-10] MEDS ORDERED: BLEOMYCIN SULFATE IVPB ONE (09:15)
[2018-08-10] MEDS ORDERED: DEXTROSE 5% IVPB ONE (09:30)
[2018-08-10] MEDS ORDERED: DACARBAZINE IVPB ONE (09:30)
[2018-08-10] MEDS ORDERED: WATER IVPB ONE (09:30)
[2018-08-10 09:40] LABS: ALBUMIN 3.4 g/dl (3.4-5.0); ALBUMIN 3.5 g/dl (3.4-5.0); ALK PHOS 328 U/L (45-117); ANION GAP 6 MMOL/L (8-16); BILIRUBIN,DIRECT 0.2 mg/dL (0.0-0.2); BILIRUBIN,TOTAL 0.5 mg/dL (0.2-1); BILIRUBIN,TOTAL 0.6 mg/dL (0.2-1); BLOOD UREA NITROGEN 10 mg/dL (7-18); CALCIUM 8.2 mg/dL (8.5-10.1); CHLORIDE 107 mmol/L (98-107); CO2 26 mmol/L (21-32); CREATININE 0.9 mg/dL (0.55-1.3); GLUCOSE,RANDOM 111 mg/dL (74-106); MAGNESIUM 2.2 mg/dL (1.8-2.4); POTASSIUM 4.1 mmol/L (3.5-5.1); SGOT/AST 103 U/L (15-37); SGPT/ALT 107 U/L (13-61); SODIUM 139 mmol/L (136-145); TOT PROT 6.5 g/dl (6.4-8.2); TOT PROT 6.9 g/dl (6.4-8.2); URIC ACID 3.4 mg/dL (2.6-7.2)
[2018-08-10 16:20] VITALS: BP 127/74; PULSE 82
[2018-08-11 15:24] LABS: BETA-2-MICROGLOBULIN 2.9 mg/L (0.6-2.4)
== END 2018-08-10 14:00 | disposition home or self-care (01) ==
LOC: JONCCHEMO 05:46 → J7W 09:14 → JONCCHEMO 14:00
PROVIDERS: ATTEND Internal Medicine Hematology & Oncology
DX: Z51.11 Encounter for antineoplastic chemotherapy (principal); C81.94 Hodgkin lymphoma, unspecified, lymph nodes of axilla and upper limb
CPT/HCPCS: 36415; 80053; 80076; 82232; 82784; 82785; 83615; 83735; 84550; 85025; 96361; 96367; 96375; 96411; 96413; 96417; J1453; J2469; J9040; J9130

== ENCOUNTER 2018-08-11 05:38 | Day surgery (SDC) | payer BC ==
[2018-08-11] MEDS ORDERED: PEGFILGRASTIM 6 MG/0.6 ML DISP.SYRIN SQ ONE (08:00)
[2018-08-11 15:28] VITALS: BP 141/78; PULSE 90; TEMP 98.1
== END 2018-08-11 13:15 | disposition home or self-care (01) ==
LOC: JONCCHEMO 05:38 → J7W 12:50 → JONCCHEMO 13:15
PROVIDERS: ATTEND Internal Medicine Hematology & Oncology
PROC: 3E013GC Introduction of Other Therapeutic Substance into Subcutaneous Tissue, Percutaneous Approach (ICD-10-PCS; principal; 2018-08-11)
DX: C81.94 Hodgkin lymphoma, unspecified, lymph nodes of axilla and upper limb (principal); Z76.89 Persons encountering health services in other specified circumstances
CPT/HCPCS: 96372; J2505

== ENCOUNTER 2018-08-24 05:30 | Day surgery (SDC) | payer BC ==
[2018-08-24] MEDS ORDERED: SODIUM CHLORIDE 500 ML IV ONE ×2 (08:00→10:30)
[2018-08-24] MEDS ORDERED: DEXAMETHASONE SODIUM PHOSPHATE 10 MG in SODIUM CHLORIDE 50 ML IVPB ONE (08:30)
[2018-08-24] MEDS ORDERED: PALONOSETRON HCL 0.25 MG/5 ML VIAL IVPUSH ONE (08:30)
[2018-08-24] MEDS ORDERED: FOSAPREPITANT DIMEGLUMINE 150 MG in SODIUM CHLORIDE 145 ML IVPB ONE (08:30)
[2018-08-24] MEDS ORDERED: DOXOrubicin HCL 50 MG/25 ML VIAL IV ONE (09:00)
[2018-08-24 09:02] LABS: BASO % 0.8 % (0-2.0); EOS % 3.1 % (0-4.5); HEMATOCRIT 40.7 % (35.4-49); HEMOGLOBIN 13.9 GM/dL (11.7-16.9); MCH 30.1 pg (25.7-33.7); MCHC 34.1 g/dl (32.0-35.9); MEAN CELL VOLUME 88.3 fl (80-96); MEAN PLT VOLUME 8.4 fl (7.5-11.1); NEUT % 74.1 % (42.8-82.8); PLATELET COUNT 184 K/MM3 (134-434); RDW 17.6 % (11.9-15.9); WHITE BLOOD COUNT 9.9 K/mm3 (4.0-10.0)
[2018-08-24] MEDS ORDERED: BLEOMYCIN SULFATE IVPB ONE (09:15)
[2018-08-24] MEDS ORDERED: SODIUM CHLORIDE IVPB ONE (09:15)
[2018-08-24] MEDS ORDERED: DACARBAZINE IVPB ONE (09:30)
[2018-08-24] MEDS ORDERED: WATER IVPB ONE (09:30)
[2018-08-24] MEDS ORDERED: DEXTROSE 5% IVPB ONE (09:30)
[2018-08-24 09:42] LABS: ALBUMIN 3.6 g/dl (3.4-5.0); ALK PHOS 322 U/L (45-117); ANION GAP 6 MMOL/L (8-16); BILIRUBIN,TOTAL 0.4 mg/dL (0.2-1); BLOOD UREA NITROGEN 16 mg/dL (7-18); CALCIUM 9.1 mg/dL (8.5-10.1); CHLORIDE 106 mmol/L (98-107); CO2 27 mmol/L (21-32); CREATININE 0.9 mg/dL (0.55-1.3); GLUCOSE,RANDOM 95 mg/dL (74-106); SGOT/AST 42 U/L (15-37); SGPT/ALT 60 U/L (13-61); SODIUM 139 mmol/L (136-145); TOT PROT 6.7 g/dl (6.4-8.2)
[2018-08-24 09:43] LABS: ALBUMIN 3.6 g/dl (3.4-5.0); BILIRUBIN,DIRECT 0.1 mg/dL (0.0-0.2); BILIRUBIN,TOTAL 0.7 mg/dL (0.2-1); MAGNESIUM 2.2 mg/dL (1.8-2.4); TOT PROT 6.8 g/dl (6.4-8.2); URIC ACID 3.7 mg/dL (2.6-7.2)
[2018-08-24] MEDS ORDERED: PORTA CATH FLUSH 10 ML IVPUSH ONE (17:18)
[2018-08-24 17:19] VITALS: BP 117/71; PULSE 82; TEMP 98
[2018-08-26 07:20] LABS: BETA-2-MICROGLOBULIN 2.7 mg/L (0.6-2.4)
== END 2018-08-24 15:00 | disposition home or self-care (01) ==
LOC: JONCCHEMO 05:30 → J7W 10:25 → JONCCHEMO 15:00
PROVIDERS: ATTEND Internal Medicine Hematology & Oncology
DX: Z51.11 Encounter for antineoplastic chemotherapy (principal); C81.94 Hodgkin lymphoma, unspecified, lymph nodes of axilla and upper limb
CPT/HCPCS: 36415; 80053; 80076; 82232; 82784; 83615; 83735; 84550; 85025; 96361; 96367; 96375; 96409; 96411; 96413; 96417; J1453; J2469; J9040; J9130

== ENCOUNTER 2018-08-25 07:01 | Day surgery (SDC) | payer BC ==
[2018-08-25] MEDS ORDERED: PEGFILGRASTIM 6 MG/0.6 ML DISP.SYRIN SQ ONE (08:00)
[2018-08-25 12:57] VITALS: BP 115/73; PULSE 88; TEMP 98.5
== END 2018-08-25 12:15 | disposition home or self-care (01) ==
LOC: JONCCHEMO 07:01 → J7W 11:42 → JONCCHEMO 12:15
PROVIDERS: ATTEND Internal Medicine Hematology & Oncology
PROC: 3E013GC Introduction of Other Therapeutic Substance into Subcutaneous Tissue, Percutaneous Approach (ICD-10-PCS; principal; 2018-08-25)
DX: C81.94 Hodgkin lymphoma, unspecified, lymph nodes of axilla and upper limb (principal); Z76.89 Persons encountering health services in other specified circumstances
CPT/HCPCS: 96372; J2505

== ENCOUNTER 2018-10-23 09:26 | Day surgery (SDC) | payer BC ==
[2018-10-20 17:58] VITALS: BMI 29.7
[2018-10-23 10:03] LABS: BASO % 0.6 % (0-2.0); EOS % 2.1 % (0-4.5); HEMATOCRIT 46.2 % (35.4-49); HEMOGLOBIN 14.9 GM/dL (11.7-16.9); LYMPH % 32.2 % (8-40); MCH 27.1 pg (25.7-33.7); MCHC 32.2 g/dl (32.0-35.9); MEAN CELL VOLUME 84.1 fl (80-96); MEAN PLT VOLUME 8.4 fl (7.5-11.1); MONO % 7.2 % (3.8-10.2); NEUT % 57.9 % (42.8-82.8); PLATELET COUNT 178 K/MM3 (134-434); RBC 5.49 M/mm3 (4.00-5.60); RDW 15.8 % (11.9-15.9)
[2018-10-23 10:19] LABS: INR 0.92 (0.83-1.09); PROTHROMBIN TIME (PATIENT) 10.9 SEC (9.7-13.0)
[2018-10-23 15:23] VITALS: BP 133/80; PULSE 78; TEMP 98.6
--- NOTE | 2018-11-02 11:04 | PATH ---
Surgical Pathology Report Patient Name: BROOKLYN OLIVARES Med. Rec. #: [id number] /Age/Gender: 1965 (Age: 53) / M Account: [id number] Location: RADIOLOGY INTER Taken: 10/23/2018 Received: 10/23/2018 Reported: 11/02/2018 Physicians: Kilo Xie M.D. Specimen(s) Received LYMPH NODE TISSUE ALSO RECEIVED IN RPMI Clinical History History of Hodgkin's lymphoma status post chemotherapy, right axillary lymph node core biopsy Final Diagnosis LYMPH NODE, RIGHT AXILLARY: - Small biopsy with mixed small B cells and T cells. Diagnostic evidence of Hodgkin lymphoma is absent. Comment: The H&E section shows multiple small fragments of clots and fibrous tissue with collections of small lymphocytes. This is no significant cytologic atypia or immunophenotypic abnormality. Pmth-Vmysplerm-dtqo large cells or CD30 positive large cells are not seen. STEPHANIE stain by in situ hybridization is negative. Flow Cytometry Analysis performed at [facility] in [place], [place] shows no immunophenotypic evidence of a clonal B cell population. Comment: Because of low viability and low cell yield, only a limited antibody panel was performed. Clinical and morphologic correlation will be necessary for a complete interpretation. See [facility] reports (Specimen #: [id number]) for additional details. Electronically Signed Rosemary Orozco M.D. Gross Description Received in formalin, labeled "right lymph node biopsy" are multiple dark brown and bazzi, irregular portions of soft tissue measuring 0.5 x 0.5 x 0.1 cm. in aggregate. The specimen is submitted in toto in one cassette. REGLA/10/23/2018 ismael/10/23/2018
== END 2018-10-23 13:35 | disposition home or self-care (01) ==
LOC: JRADIR 09:26
PROVIDERS: ATTEND Internal Medicine Hematology & Oncology
PROC: 07B53ZX Excision of Right Axillary Lymphatic, Percutaneous Approach, Diagnostic (ICD-10-PCS; principal; 2018-10-23)
DX: R59.0 Localized enlarged lymph nodes (principal); Z85.72 Personal history of non-Hodgkin lymphomas
CPT/HCPCS: 36415; 76942-TC; 85025; 85610; 87899; 88305-TC

== ENCOUNTER 2019-08-07 07:46 | Day surgery (SDC) | payer BC ==
[2019-08-06 17:37] VITALS: BMI 31.6
[2019-08-07 08:24] VITALS: TEMP 98.1
[2019-08-07 08:38] LABS: BASO % 0.5 % (0-2.0); EOS % 2.1 % (0-4.5); HEMATOCRIT 44.9 % (35.4-49); HEMOGLOBIN 15.3 GM/dL (11.7-16.9); LYMPH % 32.9 % (8-40); MCH 27.4 pg (25.7-33.7); MEAN CELL VOLUME 80.5 fl (80-96); MEAN PLT VOLUME 8.3 fl (7.5-11.1); MONO % 6.8 % (3.8-10.2); NEUT % 57.7 % (42.8-82.8); PLATELET COUNT 226 K/MM3 (134-434); RBC 5.58 M/mm3 (4.00-5.60); RDW 14.8 % (11.9-15.9); WHITE BLOOD COUNT 7.4 K/mm3 (4.0-10.0)
[2019-08-07 08:40] LABS: INR 0.91 (0.83-1.09); PROTHROMBIN TIME (PATIENT) 10.7 SEC (9.7-13.0)
[2019-08-07 12:25] VITALS: BP 137/88; PULSE 84
--- NOTE | 2019-08-15 17:31 | PATH ---
Surgical Pathology Report Patient Name: BROOKLYN OLIVARES [facility]. Rec. #: [id number] /Age/Gender: 1965 (Age: 54) / M Account: [id number] Location: RADIOLOGY INTER Taken: 08/07/2019 Received: 08/07/2019 Reported: 08/15/2019 Physicians: Kilo Xie M.D. Specimen(s) Received RIGHT NECK Clinical History 54-year-old male with history of Hodgkin's lymphoma in remission now with enlarging right neck lymph nodes Final Diagnosis LYMPH NODE, NECK, RIGHT, ULTRASOUND GUIDED CORE BIOPSY: ATYPICAL LYMPHOPROLIFERATION. SEE COMMENT. Comment: H&E stained needle core biopsy section shows fragments of lymphoid tissue with nodules of small mature lymphocytes with round to mildly irregular nuclear contours, scattered epitheloid histiocytes and a few mature plasma cells. Rare large cells with hyperchromatic nuclei are seen. Definitive Zachery-Mirta cells or diagnostic LP cells are not identified. Immunoperoxidase studies show CD20(+), PAX5(+), CD79a(+), OCT2(+), IgD(+) B-cell follicles in association with CD21(+) follicular dendritic meshworks. The interfolicular areas contain unremarkable CD3(+), CD5(+) T-cells. CD30 immunostain shows scattered positive cells, which are CD15(-), CD20(-), BCL6(-), CD79a(-) and PAX5(-). MUM1 immunostain is positive in plasma cells and in rare large cells. An in-situ hybridization for EBV (STEPHANIE) shows positivity in rare large lymphoid cells and relatively more small sized lymphoid cells. PD1 immunostain highlights the Tcells in the follicles. Findings are atypical, but not diagnostic of either classic Hodgkin lymphoma or a nodular lymphocyte predominant Hodgkin lymphoma. An excisional biopsy is recommended. Flow cytometry does not show evidence for a clonal B-cell or an abnormal T-cell population. This case was sent to Dr. Kirsty Leon from [facility] [place], [place], [place], [place] ([id number]) the diagnosis above reflects her opinion. FLOW CYTOMETRY performed and interpreted at [facility] [place], [place] ([id number]) shows the following: INTERPRETATION: No immunophenotypic evidence of a clonal B cell or an abnormal T cell population. Phenotype: The CD19 and CD20 positive B-cells are 58% of total cells. They are polyclonal without abnormal immunophenotypic features. The CD3 positive T-cells are 38% of total cells without loss of garcia-T cell antigens. CD4:CD8=5:1. CD13/33+ granulocytes/monocytes/histiocytes are 2% of total cells. There is no significant population of CD45 negative cells. See [facility] reports for additional details. Electronically Signed Evette Saldaña M.D. Gross Description Received in formalin labeled "right neck lymph node biopsy," is a 1.2 x 0.6 x 0.1 cm aggregate of multiple bazzi-brown, irregular to cylindrical portions of soft tissue. The specimen is submitted in toto in one cassette. There is additional tissue received in RPMI solution which is sent for flow cytometry. 08/07/2019 [facility]08/07/2019
== END 2019-08-07 12:26 | disposition home or self-care (01) ==
LOC: JRADIR 07:46
PROVIDERS: ATTEND Internal Medicine Hematology & Oncology
PROC: 07B13ZX Excision of Right Neck Lymphatic, Percutaneous Approach, Diagnostic (ICD-10-PCS; principal; 2019-08-07)
PROC: BH4CZZZ Ultrasonography of Head and Neck (ICD-10-PCS; 2019-08-07)
DX: D47.9 Neoplasm of uncertain behavior of lymphoid, hematopoietic and related tissue, unspecified (principal)
CPT/HCPCS: 36415; 38505; 76942-TC; 85025; 85610; 88305-TC

== ENCOUNTER 2020-03-25 18:41 | Observation (INO) | payer BC ==
--- OUTSIDE RECORDS SUMMARY | 2020-03-25 19:02 | XMS ---
:1965 Author Organization [facility] Support Name Relationship Address Phone UE Unavailable Unavailable Unavailable MCKENZIE RAZA COUSIN [address] PH [phone] 4 [place] [address] [facility] MIGUEL HONDA Unavailable [address] [place] [address] SAMUEL RAZA BROTHER [address] [place] [address] Re-disclosure Warning The records that you are about to access may contain information from federally- assisted alcohol or drug abuse programs. If such information is present, then the following federally mandated warning applies: This information has been disclosed to you from records protected by federal confidentiality rules (42 CFR part 2). The federal rules prohibit you from making any further disclosure of this information unless further disclosure is expressly permitted by the written consent of the person to whom it pertains or as otherwise permitted by 42 CFR part 2. A general authorization for the release of medical or other information is NOT sufficient for this purpose. The Federal rules restrict any use of the information to criminally investigate or prosecute any alcohol or drug abuse patient.The records that you are about to access may contain highly sensitive health information, the redisclosure of which is protected by Article 27-F of the [facility] Public Health law. If you continue you may haveaccess to information: Regarding HIV / AIDS; Provided by facilities licensed or operated by the [facility] Office of Mental Health; or Provided by the [facility] Office for People With Developmental Disabilities. If such information is present, then the following [facility] mandated warning applies: This information has been disclosed to you from confidential records which are protected by state law. State law prohibits you from making any further disclosure of this information without the specific written consent of the person to whom it pertains, or as otherwise permitted by law. Any unauthorized further disclosure in violation of state law may result in a fine or prison sentence or both. A general authorization for the release of medical or other information is NOT sufficient authorization for further disclosure. Encounters Encounter Providers Location Date Indications Data Source(s ) Outpatient 10/18/2019 07:31:00 [facility] AM EDT [facility] Insurance Providers Payer name Policy type / Policy ID Covered Covered alliance party's Policy Plan Coverage type alliance party ID relationship to Can Information can BC EPO [id number] SP [id number] BLUE CROSS [id number] PT [id number] PPO [id number] BC EPO [id number] SP [id number] BC OUT OF [id number] SP [id number] STATE 60 Problems, Conditions, and Diagnoses Code Display Name Description Problem Type Effective Dates Data Source(s) I51.7 Cardiomegaly I51.7 Diagnosis 10/18/2019 [place] 07:31:00 AM EDT Hospital 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 10/18/2019 [place] disease [facility] [place] 07:31:00 AM EDT 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 Personal history of Z92.21 Diagnosis 10/18/2019 [place] antineoplastic 07:31:00 AM EDT Hospi juancarlos chemotherapy 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. ID Date Data Source [id number] 01/21/2020 09:51:00 AM EDT [facility] Name Value Range Interpretation Code Description Data Brissa rce(s) Supporting Document(s ) SARS-CoV-2 [facility] Ql JEYSON+probe This lab was ordered by [facility] a nd reported by [facility]. ID Date Data Source [id number] 01/07/2020 01:32:00 PM EDT [facility] Name Value Range Interpretation Code Description Data Brissa rce(s) Supporting Document(s ) SARS-CoV-2 [facility] Ql JEYSON+probe This lab was ordered by [facility] a nd reported by [facility]. ID Date Data Source [id number] 12/17/2019 08:14:00 AM EDT [facility] Name Value Range Interpretation Code Description Data Brissa rce(s) Supporting Document(s ) SARS-CoV-2 [facility] Ql JEYSON+probe This lab was ordered by [facility] [address] [facility]. ID Date Data Source [id number] 11/26/2019 12:58:00 PM EDT [facility] Name Value Range Interpretation Code Description Data Brissa rce(s) Supporting Document(s ) SARS-CoV-2 [facility] Ql JEYSON+probe This lab was ordered by [facility] a nd reported by [facility]. Procedure
--- NOTE | 2020-03-25 19:40 | PDOC ---
History of Present Illness - General History Source: Patient Exam Limitations: No Limitations - History of Present Illness Initial Comments: 03/25/20 22:22 55M with PMH of hodgkin lymphoma and recent bone marrow transplant, not currently on chemo presents to the ED after mechanical fall after getting out of the shower. He denied lightheadness, dizziness, or syncope leading to fall. He recalls hitting his face on the floor, denies LOC. Reports some right arm weakness at baseline, denies change in weakness. He currently denies numbness, tingling, or other focal weakness. PMH: as in HPI Allergies: NDKA Hem-Onc: Dr. Harvey Brar ROS: GENERAL/CONSTITUTIONAL: No fever or chills. No weakness. HEENT: No change in vision. CARDIOVASCULAR: No chest pain or shortness of breath RESPIRATORY: No cough, wheezing, or hemoptysis. GASTROINTESTINAL: No nausea, vomiting, diarrhea or constipation. MUSCULOSKELETAL: No joint or muscle swelling or pain. No neck or back pain. NEUROLOGIC: No headache, vertigo, loss of consciousness, or change in strength/sensation. PE: GENERAL: AOx3; no apparent distress HEAD: stellate, irregular superficial facial laceration to right chin, no other signs of trauma EYES: PERRLA, EOMI, sclera anicteric, conjunctiva clear NECK: Normal ROM, supple, no LAD, JVD, or masses EXTREMITIES: Normal inspection, Normal range of motion, no edema. NEUROLOGICAL: CNII-XII intact. Normal speech. No focal sensorimotor deficits. Cerebellar testing intact. SKIN: Warm, Dry, normal turgor. No rashes or lesions noted Assessment and Plan 1. r/o intracranial hemorrhage, facial or c-spine fracture 2. laceration repair Mk Fletcher, PGY1 Emergency Medicine <Mk Fletcher - Last Filed: 03/25/20 22:37> <Vicki Morgan - Last Filed: 03/26/20 00:57> - General Chief Complaint: Syncope/Near Syncope Stated Complaint: Injury Time Seen by Provider: 03/25/20 19:39 NIH Stroke Scale - Last Known Well Date/Time & Onset Date Last Known Well: 03/25/20 Time Last Known Well: 17:30 - Initial Evaluation Level of consciousness: Alert Ask patient the month and their age: Answers both correctly Ask patient to open & close eyes; make fist and let go: Obeys both correctly Best gaze (horizontal eye movement): Normal Visual field testing: No visual field loss Facial paresis (Show teeth/raise eyebrows/close eyes tight): Minor paralysis (flattened nasolabial fold, asymmetry on smiling) Motor Function: Left Arm: Normal Motor Function: Right Arm: Normal (extends arm 90 (or 45) degrees for 10 seconds without drift Motor Function: Left Leg: Normal (extends leg 30 degrees for 5 seconds without drift) Motor Function: Right Leg: Normal (extends leg 30 degrees for 5 seconds without drift) Limb Ataxia: No ataxia Sensory(Use pinprick test arms,legs,trunk,face/side to side): Normal Best language (Describe picture, name items, read sentences): No Aphasia Dysarthria (read several words): Normal articulation Extinction and Inattention: No abnormality - Total Score NIH Stroke Scale Score: 1 <Mk Fletcher - Last Filed: 03/25/20 22:37> Past History - Medical History Anemia: No Asthma: No Cancer: Yes (HODGKINS) Cardiac Disorders: No CVA: No COPD: No CHF: No Dementia: No Diabetes: No GI Disorders: No Disorders: No HTN: Yes Hypercholesterolemia: Yes Liver Disease: No Seizures: No Thyroid Disease: No Other medical history: BONE MARROW TRANSPLANT 03/06/2020 - Surgical History Abdominal Surgery: No Appendectomy: Yes (1976) Cardiac Surgery: No Cholecystectomy: No Lung Surgery: No Neurologic Surgery: No Orthopedic Surgery: No - Immunization History Immunization Up to Date: Yes - Psycho-Social/Smoking History Smoking History: Never smoked Have you smoked in the past 12 months: No Information on smoking cessation initiated: No - Substance Abuse Hx (Audit-C & DAST Scrn) How often the patient has a drink containing alcohol: Never Score: In Men: 4 or > Positive; In Women: 3 or > Positive: 0 Screen Result (Pos requires Nsg. Audit-10AR): Negative In the last yr the pt used illegal drug/Rx for NonMed reason: No Score: Yes response is considered Positive: 0 Screen Result (Positive result requires Nsg. DAST-10): Negative <Mk Fletcher - Last Filed: 03/25/20 22:37> <Vicki Morgan - Last Filed: 03/26/20 00:57> - Medical History Allergies/Adverse Reactions: Allergies Allergy/AdvReac Type Severity Reaction Status Date / Time No Known Allergies Allergy Verified 10/05/19 07:34 Home Medications: Ambulatory Orders Amlodipine Besylate 5 mg PO DAILY 08/06/19 Cephalexin Monohydrate [Keflex -] 500 mg PO BID #20 capsule 03/25/20 Fluconazole 200 mg PO 03/25/20 Rosuvastatin Calcium [Crestor] 20 mg PO DAILY 03/25/20 Valacyclovir HCl [Valacyclovir] 500 mg PO DAILY 03/25/20 *Physical Exam - Vital Signs Last Vital Signs Temp Pulse Resp BP Pulse Ox 115 H 22 H 97/62 97 03/25/20 19:09 03/25/20 19:09 03/25/20 19:09 03/25/20 19:09 <Mk Fletcher - Last Filed: 03/25/20 22:37> - Vital Signs Last Vital Signs Temp Pulse Resp BP Pulse Ox 98.6 F 94 H 20 104/64 98 03/25/20 20:48 03/25/20 22:51 03/25/20 22:51 03/25/20 22:51 03/25/20 22:51 <Vicki Morgan - Last Filed: 03/26/20 00:57> Procedures - Laceration/Wound Repair Right Face Wound Length: 2.6 to 5.0 cm Wound Explored: clean Wound's Depth, Shape: irregular, stellate Irrigated w/ Saline: Yes Betadine Prep: No Anesthesia: 2% Lidocaine Amount of Anesthetic (ccs): 12 Wound Repaired With: Sutures Suture Size/Type: 6:0 Number of Sutures: 7 Layer Closure: No <Mk Fletcher - Last Filed: 03/25/20 22:37> ED Treatment Course - LABORATORY CBC & Chemistry Diagram: 03/25/20 20:12 03/25/20 20:12 <Mk Fletcher - Last Filed: 03/25/20 22:37> - LABORATORY CBC & Chemistry Diagram: 03/25/20 20:12 03/25/20 20:12 - ADDITIONAL ORDERS Additional order review: Laboratory Results 03/25/20 03/25/20 03/25/20 20:12 20:12 20:12 PT with INR INR PTT (Actin FS) VBG pH 7.457 H POC VBG pCO2 38.7 POC VBG pO2 54.2 H VBG HCO3 26.7 VBG O2 Sat (Giorgio) 89.8 H VBG Base Excess 2.8 H Sodium Potassium Chloride Carbon Dioxide Anion Gap BUN Creatinine Est GFR (CKD-EPI)AfAm Est GFR (CKD-EPI)NonAf Random Glucose Lactic Acid 1.6 Calcium Phosphorus 2.7 Magnesium 1.8 Total Bilirubin AST ALT Alkaline Phosphatase Creatine Kinase Creatine Kinase Index CK-MB (CK-2) Troponin I Total Protein Albumin Triglycerides Cholesterol Total LDL Cholesterol HDL Cholesterol Blood Type Antibody Screen 03/25/20 03/25/20 03/25/20 20:12 20:12 20:12 PT with INR INR PTT (Actin FS) VBG pH POC VBG pCO2 POC VBG pO2 VBG HCO3 VBG O2 Sat (Giorgio) VBG Base Excess Sodium 140 Potassium 3.8 Chloride 104 Carbon Dioxide 28 Anion Gap 7 L BUN 11.4 Creatinine 0.8 Est GFR (CKD-EPI)AfAm 114.93 Est GFR (CKD-EPI)NonAf 99.16 Random Glucose 109 H Lactic Acid Calcium 8.4 L Phosphorus Magnesium Total Bilirubin 0.3 AST 50 H ALT 35 Alkaline Phosphatase 143 H Creatine Kinase 398 H Creatine Kinase Index 1.1 CK-MB (CK-2) 4.6 H Troponin I < 0.02 Total Protein 6.2 L Albumin 2.8 L Triglycerides 526 H Cancelled Cholesterol 373 H Cancelled Total LDL Cholesterol 265 H Cancelled HDL Cholesterol 36 L Cancelled Blood Type O POSITIVE Antibody Screen Negative 03/25/20 20:12 PT with INR 11.30 INR 0.96 PTT (Actin FS) 27.1 VBG pH POC VBG pCO2 POC VBG pO2 VBG HCO3 VBG O2 Sat (Giorgio) VBG Base Excess Sodium Potassium Chloride Carbon Dioxide Anion Gap BUN Creatinine Est GFR (CKD-EPI)AfAm Est GFR (CKD-EPI)NonAf Random Glucose Lactic Acid Calcium Phosphorus Magnesium Total Bilirubin AST ALT Alkaline Phosphatase Creatine Kinase Creatine Kinase Index CK-MB (CK-2) Troponin I Total Protein Albumin Triglycerides Cholesterol Total LDL Cholesterol HDL Cholesterol Blood Type Antibody Screen 03/25/20 20:12 RBC 3.48 L MCV 85.8 MCHC 33.4 RDW 15.1 MPV 9.6 D Neutrophils % 76.4 Lymphocytes % 9.3 D Monocytes % 13.9 H D Eosinophils % 0.0 D Basophils % 0.4 - RADIOLOGY Radiology Studies Ordered: Category Date Time Status CHEST X-RAY PORTABLE* [RAD] Stat Radiology 03/25/20 23:10 Ordered - Medications Given in the ED: ED Medications Discontinued Medications Generic Name Dose Route Start Last Admin Trade Name Ej PRN Reason Stop Dose Admin Acetaminophen 1,000 mg 03/25/20 20:39 03/25/20 21:43 Ofirmev Injection - IVPB 03/25/20 20:40 1,000 mg ONCE ONE Administration <Vicki Morgan - Last Filed: 03/26/20 00:57> Medical Decision Making - Medical Decision Making 03/25/20 20:44 55M p/w fall, and left right lateral chin laceration. With left sided facial droop. Head, c-spine, and facial bone CT negative. 03/25/20 22:18 Pt given orfimev. Stellate facial laceration repaired, and skin well approximated. Pt given 1g ancef. 03/25/20 22:37 Dr. Brar was contacted and stated that the pt should be discharged with keflex. Pt will be discharged after repeat vitals. <Mk Fletcher - Last Filed: 03/25/20 22:37> Discharge <Mk Fletcher - Last Filed: 03/25/20 22:37> - Discharge Information Problems reviewed: Yes - Admission Yes <Vicki Morgan - Last Filed: 03/26/20 00:57> - Discharge Information Clinical Impression/Diagnosis: Fall, Facial trauma, Laceration, History of Hodgkin's lymphoma, Syncope, near, Unsteady gait when walking Condition: Stable
[2020-03-25] MEDS ORDERED: SODIUM CHLORIDE 1,000 ML IV SCH (20:00)
[2020-03-25 20:29] LABS: VENOUS BASE EXCESS 2.8 mmol/L (-2-2); VENOUS O2 SATURATION 89.8 % (70-80); VENOUS PCO2 38.7 mmHg (38-52); VENOUS PH 7.457 (7.310-7.410)
--- NOTE | 2020-03-25 20:34 | PDOC ---
Documentation entered by Bebo Wall SCRIBE, acting as scribe for Vicki Morgan MD. Vicki Morgan MD: This documentation has been prepared by the Familia urbina Xhesika, SCRIBE, under my direction and personally reviewed by me in its entirety. I confirm that the documentation accurately reflects all work, treatment, procedures, and medical decision making performed by me. Attending Attestation - Resident Resident Name: Mk Fletcher - ED Attending Attestation I have performed the following: I have examined & evaluated the patient, The case was reviewed & discussed with the resident, I agree w/resident's findings & plan, Exceptions are as noted - HPI HPI: 03/25/20 19:42 55y/o M had a mechanical fall getting out of the shower and sustained a facial laceration near his rt jawline that required sutures Allergies: NKDA PCP: Lorne Franklin Oncologist: Dr. Farmer 03/25/20 22:59 pt was given antibiotics and then we - Physicial Exam PE: 03/25/20 19:54 GENERAL: Awake, alert, and fully oriented. +rigors HEAD: No signs of trauma EYES: PERRLA, EOMI, sclera anicteric, conjunctiva clear ENT: Auricles normal inspection, hearing grossly normal, nares patent, oropharynx clear without exudates. Moist mucosa NECK: Normal ROM, supple, no lymphadenopathy, JVD, or masses LUNGS: Breath sounds equal, clear to auscultation bilaterally. No wheezes, and no crackles HEART: Regular rate and rhythm, normal S1 and S2, no murmurs, rubs or gallops ABDOMEN: Soft, nontender, normoactive bowel sounds. No guarding, no rebound. No masses EXTREMITIES: Normal range of motion, no edema. No clubbing or cyanosis. No cords, erythema, or tenderness NEUROLOGICAL: Cranial nerves II through XII grossly intact. Normal speech. +mild flattening of Rt nasolabial fold,intermittent episodes of fine tremor in right arm and leg SKIN: Warm, Dry, normal turgor; +3cm stellate jaw laceration 03/25/20 20:32 03/25/20 22:54 - Medical Decision Making 03/25/20 22:[address] lee (oncology) who agreed that patient can be paced on abx and discharged home but when the pt tried to ambulate he felt too unsteady to go home and he was admitted 03/25/20 22:54 This 55 yo male received autologous bone marrow translant 03/06 and was discharged from [facility] Mar 20 Tonight he had a mechanical fall getting out of the shower and sustained a stellar jaw laceration ct scan brain :no acute intracranial pathology ct scan of cervical spine: no fracture ct scan of facial bones :negative for fracture 03/26/20 01:00 Discharge - Discharge Information Problems reviewed: Yes Clinical Impression/Diagnosis: Fall, Facial trauma, Laceration, History of Hodgkin's lymphoma, Syncope, near, Unsteady gait when walking Condition: Stable - Additional Discharge Information - Follow up/Referral - Patient Discharge Instructions - Post Discharge Activity
[2020-03-25] MEDS ORDERED: ACETAMINOPHEN 1000 MG/100 ML VIAL (NON FORMULARY) IVPB ONE (20:39)
[2020-03-25 20:44] LABS: BASO % 0.4 % (0-2.0); HEMATOCRIT 29.9 % (35.4-49); LYMPH % 9.3 % (8-40); MCH 28.7 pg (25.7-33.7); MCHC 33.4 g/dl (32.0-35.9); MEAN CELL VOLUME 85.8 fl (80-96); MEAN PLT VOLUME 9.6 fl (7.5-11.1); MONO % 13.9 % (3.8-10.2); NEUT % 76.4 % (42.8-82.8); PLATELET COUNT 259 K/MM3 (134-434); RBC 3.48 M/mm3 (4.00-5.60); RDW 15.1 % (11.9-15.9); WHITE BLOOD COUNT 11.6 K/mm3 (4.0-10.0)
[2020-03-25 20:51] LABS: INR 0.96 (0.83-1.09); PROTHROMBIN TIME (PATIENT) 11.3 SEC (9.7-13.0)
[2020-03-25] MEDS ORDERED: ACETAMINOPHEN INJECTION 100 ML IVPB ONE (20:53)
[2020-03-25 20:54] LABS: ACTIVATED PTT 27.1 SECONDS (25.2-36.5)
[2020-03-25 21:08] LABS: MAGNESIUM 1.8 mg/dL (1.8-2.4); PHOSPHOROUS 2.7 mg/dL (2.5-4.9)
[2020-03-25 21:10] LABS: ALBUMIN 2.8 g/dl (3.4-5.0); ALK PHOS 143 U/L (45-117); ANION GAP 7 MMOL/L (8-16); BILIRUBIN,TOTAL 0.3 mg/dL (0.2-1); BLOOD UREA NITROGEN 11.4 mg/dL (7-18); CALCIUM 8.4 mg/dL (8.5-10.1); CHLORIDE 104 mmol/L (98-107); CHOLESTEROL 373 mg/dL (50-200); CO2 28 mmol/L (21-32); CREATININE 0.8 mg/dL (0.55-1.3); GLUCOSE,RANDOM 109 mg/dL (74-106); HDL CHOLESTEROL 36 mg/dL (40-60); LDL CHOLESTEROL (ONLY SJRH) 265 mg/dL (5-100); POTASSIUM 3.8 mmol/L (3.5-5.1); SGOT/AST 50 U/L (15-37); SGPT/ALT 35 U/L (13-61); SODIUM 140 mmol/L (136-145); TOT PROT 6.2 g/dl (6.4-8.2); TRIGLYCERIDES 526 mg/dL (0-150)
[2020-03-25] MEDS ORDERED: LIDOCAINE 2.5%/PRILOCAINE 2.5% (5 Gram/TUBE) TP ONE (21:13)
[2020-03-25] MEDS ORDERED: LIDOCAINE HCL 2% (20ML MULTI-DOSE VIAL) ONE (21:34)
[2020-03-25] MEDS ORDERED: CEFAZOLIN 1 GM in DEXTROSE 5%-WATER - 50 ML IVPB ONE (22:32)
[2020-03-25] MEDS ORDERED: CEFAZOLIN 2 GM/D5W 2 GM/50 ML ML IVPB ONE (22:43)
[2020-03-25] MEDS ORDERED: ceFAZolin 2 GRAM PREMIX BAG IVPB STA (23:12)
--- NOTE | 2020-03-25 23:25 | HP ---
Admitting History and Physical - Primary Care Physician PCP: Lorne Franklin S - Admission Chief Complaint: Near Syncope, s/p Fall, Unsteady Gait History of Present Illness: This is a 55 y/o male with a significant PMHx of: HTN, HLD, Hodgkin Lymphoma s/p bone marrow transplant 03/06 (not currently on chemo) recent discharge from [facility] 03/20. Who presents to the ED for near syncopal episode. Patient reports s/p mechanical fall while getting out of the shower. He reports hitting his face on the floor, he denies LOC. Patient denies dizziness or lightheadedness prior to the shower. He reports having right arm weakness at baseline. He reports having generalized weakness to his b/l LE with unsteady gait. Patient denies parasthesias. Patient denies fever, chills, cough, SOB, HENRIQUEZ, blurred vision, CP, palpitations, AP, N/V/D, constipation, dysuria. Patient denies recent sick contacts or travel. Hem-Onc: Dr. Harvey Brar History Source: Patient, Family Member Limitations to Obtaining History: No Limitations - Past Medical History Cardiovascular: Yes: HTN, Hyperlipdemia Heme/Onc: Yes: Cancer (Hodgkin Lymphoma) - Past Surgical History Past Surgical History: Yes: Appendectomy Additional Past Surgical History: Bone Marrow Transplant - Smoking History Smoking history: Never smoked Have you smoked in the past 12 months: No - Alcohol/Substance Use Hx Alcohol Use: No History of Substance Use: reports: None - Social History Usual Living Arrangement: Yes: With Spouse Do you think of yourself as: Straight/Heterosexual ADL: Independent History of Recent Travel: No Home Medications - Allergies Allergies/Adverse Reactions: Allergies Allergy/AdvReac Type Severity Reaction Status Date / Time No Known Allergies Allergy Verified 10/05/19 07:34 - Home Medications Home Medications: Ambulatory Orders Amlodipine Besylate 5 mg PO DAILY 08/06/19 Cephalexin Monohydrate [Keflex -] 500 mg PO BID #20 capsule 03/25/20 Fluconazole 200 mg PO 03/25/20 Rosuvastatin Calcium [Crestor] 20 mg PO DAILY 03/25/20 Valacyclovir HCl [Valacyclovir] 500 mg PO DAILY 03/25/20 Family Medical History Family History: Unremarkable Review of Systems - Review of Systems Constitutional: reports: Weakness Eyes: reports: No Symptoms HENT: reports: Other (right facial pain) Neck: reports: No Symptoms Cardiovascular: reports: No Symptoms Respiratory: reports: No Symptoms Gastrointestinal: reports: No Symptoms Genitourinary: reports: No Symptoms Breasts: reports: No Symptoms Reported Musculoskeletal: reports: No Symptoms Integumentary: reports: Bruising (face) Physical Examination Vital Signs: Vital Signs Temperature 98.6 F 03/25/20 20:48 Pulse Rate 94 H 03/25/20 22:51 Respiratory Rate 20 03/25/20 22:51 Blood Pressure 104/64 03/25/20 22:51 O2 Sat by Pulse Oximetry (%) 98 03/25/20 22:51 Constitutional: Yes: No Distress, Calm Eyes: Yes: Conjunctiva Clear, EOM Intact, PERRL HENT: Yes: Atraumatic, Normocephalic, Other (stellate irregular superficial facial repaired laceration to right chin with gauze bandage) Neck: Yes: Supple, Trachea Midline Cardiovascular: Yes: Regular Rate and Rhythm, S1, S2, Other (Sarath cath- RCW) Respiratory: Yes: Regular, CTA Bilaterally Gastrointestinal: Yes: Normal Bowel Sounds, Soft ...Rectal Exam: Yes: Deferred Renal/: Yes: WNL Breast(s): Yes: WNL Musculoskeletal: Yes: WNL Extremities: Yes: WNL Edema: No Peripheral Pulses WNL: Yes Integumentary: Yes: Bruising, Erythema Wound/Incision: Yes: Sutures Intact, Dressing Dry and Intact Neurological: Yes: WNL, Alert, Oriented ...Motor Strength: WNL Psychiatric: Yes: WNL, Alert, Oriented Labs: CBC, BMP 03/25/20 20:12 03/25/20 20:12 Laboratory Results - last 24 hr 03/25/20 03/25/20 03/25/20 20:12 20:12 20:12 WBC 11.6 H RBC 3.48 L Hgb 10.0 L Hct 29.9 L D MCV 85.8 MCH 28.7 MCHC 33.4 RDW 15.1 Plt Count 259 MPV 9.6 D Absolute Neuts (auto) 8.9 H Neutrophils % 76.4 Lymphocytes % 9.3 D Monocytes % 13.9 H D Eosinophils % 0.0 D Basophils % 0.4 Nucleated RBC % 0 PT with INR 11.30 INR 0.96 PTT (Actin FS) 27.1 VBG pH POC VBG pCO2 POC VBG pO2 VBG HCO3 VBG O2 Sat (Giorgio) VBG Base Excess Sodium Potassium Chloride Carbon Dioxide Anion Gap BUN Creatinine Est GFR (CKD-EPI)AfAm Est GFR (CKD-EPI)NonAf Random Glucose Lactic Acid Calcium Phosphorus Magnesium Total Bilirubin AST ALT Alkaline Phosphatase Creatine Kinase Creatine Kinase Index CK-MB (CK-2) Troponin I Total Protein Albumin Triglycerides Cancelled Cholesterol Cancelled Total LDL Cholesterol Cancelled HDL Cholesterol Cancelled Blood Type Antibody Screen 03/25/20 03/25/20 03/25/20 20:12 20:12 20:12 WBC RBC Hgb Hct MCV MCH MCHC RDW Plt Count MPV Absolute Neuts (auto) Neutrophils % Lymphocytes % Monocytes % Eosinophils % Basophils % Nucleated RBC % PT with INR INR PTT (Actin FS) VBG pH POC VBG pCO2 POC VBG pO2 VBG HCO3 VBG O2 Sat (Giorgio) VBG Base Excess Sodium 140 Potassium 3.8 Chloride 104 Carbon Dioxide 28 Anion Gap 7 L BUN 11.4 Creatinine 0.8 Est GFR (CKD-EPI)AfAm 114.93 Est GFR (CKD-EPI)NonAf 99.16 Random Glucose 109 H Lactic Acid Calcium 8.4 L Phosphorus 2.7 Magnesium 1.8 Total Bilirubin 0.3 AST 50 H ALT 35 Alkaline Phosphatase 143 H Creatine Kinase 398 H Creatine Kinase Index 1.1 CK-MB (CK-2) 4.6 H Troponin I < 0.02 Total Protein 6.2 L Albumin 2.8 L Triglycerides 526 H Cholesterol 373 H Total LDL Cholesterol 265 H HDL Cholesterol 36 L Blood Type O POSITIVE Antibody Screen Negative 03/25/20 03/25/20 03/26/20 20:12 20:12 06:33 WBC 6.9 RBC 3.51 L Hgb 9.8 L Hct 29.7 L MCV 84.6 MCH 27.9 MCHC 33.0 RDW 15.9 Plt Count 249 MPV 9.4 Absolute Neuts (auto) 4.0 Neutrophils % 58.2 D Lymphocytes % 24.1 D Monocytes % 16.7 H Eosinophils % 0.1 D Basophils % 0.9 Nucleated RBC % 0 PT with INR INR PTT (Actin FS) VBG pH 7.457 H POC VBG pCO2 38.7 POC VBG pO2 54.2 H VBG HCO3 26.7 VBG O2 Sat (Giorgio) 89.8 H VBG Base Excess 2.8 H Sodium Potassium Chloride Carbon Dioxide Anion Gap BUN Creatinine Est GFR (CKD-EPI)AfAm Est GFR (CKD-EPI)NonAf Random Glucose Lactic Acid 1.6 Calcium Phosphorus Magnesium Total Bilirubin AST ALT Alkaline Phosphatase Creatine Kinase Creatine Kinase Index CK-MB (CK-2) Troponin I Total Protein Albumin Triglycerides Cholesterol Total LDL Cholesterol HDL Cholesterol Blood Type Antibody Screen Intake & Output 03/23/20 03/24/20 03/25/20 03/26/20 23:59 23:59 23:59 23:59 Weight 79.379 kg Imaging - Results Chest X-ray: Report Reviewed, Image Reviewed Cat Scan: Report Reviewed, Image Reviewed EKG: Image Reviewed Problem List - Problems (1) Syncope, near Assessment/Plan: Likely arrhythmia vs vasovagal Continue cardiac monitoring Serial Enzymes neg x1, will trend Appreciate Cardiology consult Carotid Doppler r/o stenosis Lipid Panel- mixed hyperlipidemia Consider increasing Crestor will defer to Cardiology Monitor CBC, CMP Code(s): R55 - SYNCOPE AND COLLAPSE (2) Fall Assessment/Plan: Likely secondary to arrhythmia Head CT- neg ICH Facial CT- no fx Cervical CT-no fx, marked C4-C5 and mod to marked C3-C4 central stenosis Appreciate PT eval Fall precautions Monitor vitals Monitor CBC, CMP Code(s): W19.XXXA - UNSPECIFIED FALL, INITIAL ENCOUNTER (3) Unsteady gait when walking Assessment/Plan: see above PT eval Fall Precautions Code(s): R26.81 - UNSTEADINESS ON FEET (4) Facial trauma Assessment/Plan: Facial Bones CT- no fx. soft tissue air accumulation along the lateral aspect of the right anterior mandible s/p lac repair in the ED Cefazolin given in ED, will continue Consider ID consult TD not given 2/2 s/p bone marrow transplant Tylenol prn Code(s): S09.93XA - UNSPECIFIED INJURY OF FACE, INITIAL ENCOUNTER (5) Hodgkin's lymphoma Assessment/Plan: s/p bone marrow transplant Consider Oncology consult Monitor CBC Code(s): C81.90 - HODGKIN LYMPHOMA, UNSPECIFIED, UNSPECIFIED SITE (6) Encounter for screening laboratory testing for COVID-19 virus Assessment/Plan: Low Risk COVID PCR- pending Isolation Precautions Code(s): Z20.828 - CONTACT W AND EXPOSURE TO OTH VIRAL COMMUNICABLE DISEASES Assessment/Plan This is a 55 y/o male with a significant PMHx of: HTN, HLD, Hodgkin Lymphoma s/p bone marrow transplant 03/06 (not currently on chemo) recent discharge from [facility] 03/20. Admitted to Telemetry for Near Syncope, Unsteady gait, Weakness for further evaluation of their emergent condition. Plan: See Problem List FEN PO fluids as tolerated Replete lytes prn Low Na Diet DVT ppx OOB SCDs Heparin SQ Dispo: Requires Inpatient Care Visit type - Emergency Visit Emergency Visit: Yes ED Registration Date: 03/25/20 Care time: The patient presented to the Emergency Department on the above date and was hospitalized for further evaluation of their emergent condition. - New Patient This patient is new to me today: Yes Date on this admission: 03/25/20 - Critical Care Critical Care patient: No
--- OUTSIDE RECORDS SUMMARY | 2020-03-25 23:33 | XMS ---
:1965 Author Organization [facility] Support Name Relationship Address Phone UE, UNEMPLOYED Unavailable Unavailable Unavailable UE Unavailable Unavailable Unavailable MCKENZIE RAZA COUSIN [address] [place] [address] [facility] MIGUEL HONDA Unavailable [address] [place] [address] SAMUEL RAZA BROTHER [address] PH [phone] [place] [address] Re-disclosure Warning The records that you are [...] is protected by Article 27-F of the [facility] Public Health law. If you continue you may haveaccess to information: Regarding HIV / AIDS; Provided by facilities licensed or operated by the [facility] Office of Mental Health; or Provided by the [facility] Office for People With Developmental Disabilities. If such information is present, then the following [facility] mandated warning applies: This information has been [...] law may result in a fine or intermediate sentence or both. A general authorization for the release of medical or other information is NOT sufficient authorization for further disclosure. Encounters Encounter Providers Location Date Indications Data Source(s ) Outpatient 10/18/2019 07:31:00 [facility] AM EDT [facility] Insurance Providers Payer name Policy type / Policy ID Covered Covered democrat's Policy Plan Coverage type democrat ID relationship to Can Information can BC EPO [id number] SP [id number] BLUE CROSS [id number] PT [id number] PPO 60 BC EPO [id number] SP [id number] BC OUT OF [id number] SP [id number] STATE 60 Problems, Conditions, and Diagnoses Code Display Name Description Problem Type Effective Dates Data Source(s) I51.7 Cardiomegaly I51.7 Diagnosis 10/18/2019 [place] 07:31:00 AM EDT Hospital 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 10/18/2019 [facility] [place] disease of [place] 07:31:00 AM EDT 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 Personal history of Z92.21 Diagnosis 10/18/2019 [place] antineoplastic 07:31:00 AM EDT Hospi juancarlos chemotherapy 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 ID Date Data Source [id number] 01/21/2020 09:51:00 AM EDT [facility] Name Value Range Interpretation Code Description Data Brissa rce(s) Supporting Document(s ) SARS-CoV-2 [facility] Ql JEYSON+probe This lab was ordered by [facility] a nd reported by [facility]. ID Date Data Source [id number] 01/07/2020 01:32:00 PM EDT [facility] Name Value Range Interpretation Code Description Data Brissa rce(s) Supporting Document(s ) SARS-CoV-2 [facility] Ql JEYSON+probe This lab was ordered by [facility] a nd reported by [facility]. ID Date Data Source [id number] 12/17/2019 08:14:00 AM EDT [facility] Name Value Range Interpretation Code Description Data Brissa rce(s) Supporting Document(s ) SARS-CoV-2 [facility] Ql JEYSON+probe This lab was ordered by [facility]IN[facility] and reported by [facility]. ID Date Data Source [id number] 11/26/2019 12:58:00 PM EDT [facility] Name Value Range Interpretation Code Description Data Brissa rce(s) Supporting Document(s ) SARS-CoV-2 [facility] Ql JEYSON+probe This lab was ordered by [facility] a nd reported by [facility]. Procedure
[2020-03-26] MEDS: LACTATED RINGERS SOLUTION 1,000 ML/1,000 ML INFUS.BAG IV SCH (04:30)
[2020-03-26 07:13] LABS: BASO % 0.9 % (0-2.0); EOS % 0.1 % (0-4.5); HEMATOCRIT 29.7 % (35.4-49); HEMOGLOBIN 9.8 GM/dL (11.7-16.9); LYMPH % 24.1 % (8-40); MCH 27.9 pg (25.7-33.7); MEAN CELL VOLUME 84.6 fl (80-96); MEAN PLT VOLUME 9.4 fl (7.5-11.1); MONO % 16.7 % (3.8-10.2); NEUT % 58.2 % (42.8-82.8); PLATELET COUNT 249 K/MM3 (134-434); RBC 3.51 M/mm3 (4.00-5.60); RDW 15.9 % (11.9-15.9); WHITE BLOOD COUNT 6.9 K/mm3 (4.0-10.0)
[2020-03-26 07:52] LABS: ALK PHOS 145 U/L (45-117); ANION GAP 7 MMOL/L (8-16); BILIRUBIN,TOTAL 0.7 mg/dL (0.2-1); BLOOD UREA NITROGEN 10.4 mg/dL (7-18); CALCIUM 8.4 mg/dL (8.5-10.1); CHLORIDE 107 mmol/L (98-107); CO2 27 mmol/L (21-32); CREATININE 0.7 mg/dL (0.55-1.3); GLUCOSE,RANDOM 106 mg/dL (74-106); MAGNESIUM 2.2 mg/dL (1.8-2.4); POTASSIUM 4.4 mmol/L (3.5-5.1); SGOT/AST 51 U/L (15-37); SGPT/ALT 34 U/L (13-61); SODIUM 141 mmol/L (136-145); TOT PROT 6.4 g/dl (6.4-8.2)
[2020-03-26 09:43] LABS: ANISOCYTOSIS 0; MACROCYTOSIS 0; PLATELET ESTIMATE NORMAL
--- NOTE | 2020-03-26 09:51 | EKG ---
Test Reason : Blood Pressure : / mmHG Vent. Rate : 111 BPM Atrial Rate : 111 BPM P-R Int : 114 ms QRS Dur : 084 ms QT Int : 334 ms P-R-T Axes : 059 013 057 degrees QTc Int : 454 ms POOR DATA QUALITY, INTERPRETATION MAY BE ADVERSELY AFFECTED SINUS TACHYCARDIA OTHERWISE NORMAL ECG NO PREVIOUS ECGS AVAILABLE Confirmed by MD Cevallos Daniel ([id number]) on 03/26/2020 9:50:56 AM Referred By: Confirmed By:Manuel Cevallos MD
[2020-03-26] MEDS ORDERED: CEFAZOLIN 1 GM/D5W 1 GM/50 ML BAG IVPB SCH (10:00)
[2020-03-26] MEDS ORDERED: CEFAZOLIN 1 GM/D5W 1 GM/50 ML BAG ONE (11:00)
[2020-03-26] MEDS: valACYclovir HCL 500 MG TABLET (FP) PO SCH (11:00)
[2020-03-26] MEDS ORDERED: valACYclovir HCL 500 MG TABLET (FP) ONE (11:00)
--- NOTE | 2020-03-26 11:08 | PN ---
Progress Note, Physician Chief Complaint: Syncope Hodgkins lymphoma History of Present Illness: This is a 55 y/o male with a significant PMHx of: HTN, HLD, Hodgkin Lymphoma s/p bone marrow transplant 03/06 (not currently on chemo) recent discharge from [facility] 03/20 came int o R ER for syncope. As per pt, he went in to take a HOT shower, during which he felt fatigued. Right after shower, he sat at the edge of the bath tub to put on his clothes. He stood up to put on his shirt, and dropped to the floor, hitting hid right side of the head on the sink. Currently, has right mandibular laceration with stitches, denies any pain or light headedness or dizziness. Pt also has been on amlodipine 5 mg po daily, which he takes sporadically, because he says his pressures are always on the low end. He had taken amlodipine yesterday morning before the fall. Pt recently had echo + Carotid done at [facility] within past 2 months:echocardiogram done at [facility] on 02/06/2020 and showed an EF of 60%, normal LV size and function, mildly dilated RV with normal RV function, EF 60%, fibrocalcific changes to the aortic valve without aortic stenosis, the peak gradient was 28 mmHg and the mean gradient was 13 mmHg. The global longitudinal strain was 15.9%. Patient denies fever, chills, cough, SOB, HENRIQUEZ, blurred vision, CP, palpitations, AP, N/V/D, constipation, dysuria. Patient denies recent sick contacts or travel. - Current Medication List Current Medications: Active Medications Sodium Chloride (Normal Saline -) 1,000 mls @ 42 mls/hr IV ASDIR KIP Last Admin: 03/25/20 23:33 Dose: Not Given Documented by: Cefazolin Sodium (Ancef 1 Gm Premixed Ivpb -) 1 gm in 50 mls @ 100 mls/hr IVPB Q8H-IV KIP Rosuvastatin Calcium (Crestor -) 20 mg PO HS KIP Valacyclovir HCl (Valtrex -) 500 mg PO DAILY KIP - Objective Vital Signs: Vital Signs Temperature 98.1 F 03/26/20 06:24 Pulse Rate 96 H 03/26/20 06:24 Respiratory Rate 16 03/26/20 06:24 Blood Pressure 103/62 03/26/20 06:24 O2 Sat by Pulse Oximetry (%) 95 03/26/20 06:24 Constitutional: Yes: Well Nourished, No Distress, Calm Cardiovascular: Yes: Regular Rate and Rhythm Respiratory: Yes: Regular, CTA Bilaterally Gastrointestinal: Yes: Normal Bowel Sounds, Soft Genitourinary: Yes: WNL Musculoskeletal: Yes: Muscle Weakness Extremities: Yes: WNL Edema: No Peripheral Pulses WNL: Yes Neurological: Yes: Alert, Oriented Psychiatric: Yes: Alert, Oriented Labs: CBC, BMP 03/26/20 06:33 03/26/20 06:33 INR, PTT INR 0.96 (0.83-1.09) 03/25/20 20:12 Problem List - Problems (1) Syncope Assessment/Plan: -CT head unremarkable -Cardiology consult appreciated, cleared by cardiology to be discharged -Await Neurology consult -Check orthostatic BP -D/C amlodipine -Echo + U/S carotid not indicated at this time - B12 and thyroid profile unremarkable Problems reviewed: Yes Code(s): R55 - SYNCOPE AND COLLAPSE (2) Fall Assessment/Plan: -Safety precautions -PT -Upon walking pt oob , pt is weak and unsteady Problems reviewed: Yes Code(s): W19.XXXA - UNSPECIFIED FALL, INITIAL ENCOUNTER (3) Hodgkin's lymphoma Assessment/Plan: -Oncology consult Problems reviewed: Yes Code(s): C81.90 - HODGKIN LYMPHOMA, UNSPECIFIED, UNSPECIFIED SITE (4) Hyperlipidemia Assessment/Plan: -LDL-265 -started on rosuvastatin 20 mg po hs Problems reviewed: Yes Code(s): E78.5 - HYPERLIPIDEMIA, UNSPECIFIED (5) Anemia Assessment/Plan: -Baseline at 15 -Iron + thyroid profile, B12 normal -Anemia of CD Problems reviewed: Yes Code(s): D64.9 - ANEMIA, UNSPECIFIED Assessment/Plan See problem list
--- NOTE | 2020-03-26 11:29 | CON.CARD ---
Consult Consult Specialty:: Cardiology Reason for Consultation:: Mechanical Fall. ? Near syncope - History of Present Illness Chief Complaint: S/P Mechanical fall History of Present Illness: This is a 55 year old male with a PMH of HTN, HLD, and Hodkin's Lymphoma. He is S/P chemo and a bone marrow transplant on 03/06/2020. Currently he is not on chemo. His last echocardiogram was done at [facility] on 02/06/2020 and showed an EF of 60%, normal LV size and function, mildly dilated RV with normal RV function, EF 60%, fibrocalcific changes to the aortic valve without aortic stenosis, the peak gradient was 28 mmHg and the mean gradient was 13 mmHg. The global longitudinal strain was 15.9%. He presents now to the ED after a mechanical fall getting out of the shower. He hit his head on the floor but denies LOC. He also denies dizziness and lightheadedness while getting out of the shower. He sustained a faciall laceration. At baseline he has right arm weakness and occasionally notes an unsteady gait. EKG Sinus tachycardia at 111 BPM with normal intervals, normal axis, and NSSTTW changes. - Past Medical History Cardio/Vascular: Yes: HTN, Hyperlipdemia - Past Surgical History Past Surgical History: Yes: Appendectomy - Alcohol/Substance Use Hx Alcohol Use: No History of Substance Use: reports: None - Smoking History Smoking history: Never smoked Have you smoked in the past 12 months: No - Social History ADL: Independent History of Recent Travel: No Home Medications - Allergies Allergies/Adverse Reactions: Allergies Allergy/AdvReac Type Severity Reaction Status Date / Time No Known Allergies Allergy Verified 10/05/19 07:34 - Home Medications Home Medications: Ambulatory Orders Amlodipine Besylate 5 mg PO DAILY 08/06/19 Cephalexin Monohydrate [Keflex -] 500 mg PO BID #20 capsule 03/25/20 Fluconazole 200 mg PO 03/25/20 Rosuvastatin Calcium [Crestor] 20 mg PO DAILY 03/25/20 Valacyclovir HCl [Valacyclovir] 500 mg PO DAILY 03/25/20 Vital Signs: Vital Signs Temperature 98.1 F 03/26/20 06:24 Pulse Rate 96 H 03/26/20 06:24 Respiratory Rate 16 03/26/20 06:24 Blood Pressure 103/62 03/26/20 06:24 O2 Sat by Pulse Oximetry (%) 95 03/26/20 06:24 Constitutional: Yes: No Distress Eyes: Yes: WNL HENT: Yes: WNL Neck: Yes: WNL Respiratory: Yes: CTA Bilaterally Gastrointestinal: Yes: Normal Bowel Sounds Cardiovascular: Yes: Regular Rate and Rhythm Heart Sounds: Yes: S1, S2 Edema: No Neurological: Yes: Alert, Oriented - Other Data Labs, Other Data: CBC, BMP 03/26/20 06:33 03/26/20 06:33 INR, PTT INR 0.96 (0.83-1.09) 03/25/20 20:12 Troponin, BNP 03/25/20 20:12 Troponin I < 0.02 Troponin, BNP 03/25/20 20:12 Troponin I < 0.02 Assessment/Plan 55 year old male with a PMH of HTN, HLD and Hodkin's Lymphoma. He is S/P chemo and a bone marrow transplant on 03/06/2020. Currently he is not on chemo. His last echocardiogram was done at [facility] on 02/06/2020 and showed an EF of 60%, normal LV size and function, mildly dilated RV with normal RV function, EF 60%, f ibrocalcific changes to the aortic valve without aortic stenosis, the peak gradient was 28 mmHg and the mean gradient was 13 mmHg. The global longitudinal strain was 15.9%. He presents now to the ED after a mechanical fall getting out of the shower. He hit his head on the floor but denies LOC. He also denies dizziness and lightheadedness while getting out of the shower. He sustained a faciall laceration. At baseline he has right arm weakness and occasionally notes an unsteady gait. EKG Sinus tachycardia at 111 BPM with normal intervals, normal axis, and NSSTTW changes. Mechanical Fall Denied dizziness or lightheadedness prior to the fall but is not entirely sure Check orthostatics prior to discharge DC amlodipine Recommend to not take excessively hot showers Keep well hydrated No further inpatient cardiac evaluation is required
[2020-03-26 13:11] LABS: IRON SERUM 55 ug/dL (50-175); TOTAL IRON BINDING CAPACITY 219 ug/dL (250-450)
--- NOTE | 2020-03-26 14:50 | CONSULT ---
Consultation: REQUESTING PROVIDER: CONSULT REQUEST: We have been asked to medically evaluate this patient for (specify). HISTORY OF PRESENT ILLNESS: 55 y/o M PMHx HTN, HLD, Hodgkin Lymphoma (recently discharged from [facility] on 03/20 s/p bone marrow transplant on 03/06, not on chemo), presents after a syncop al episode with sustained a facial laceration. Patient has been diagnosed with HL since 2017 for which he was treated with chemotherapy; his follow up pet scans (follows with Dr. Brar) were normal however in 05/2019 he felt a Lump on his neck which was biopsied and determined to be HL. Patient received 4 cycles of chemotherapy and [facility]. Since discharge, he has felt fatigue but denies any gross hematuria, hemoptysis or hematochezia. The evening of admission, patient felt fatigue but took a hot shower. Shortly after, patient syncopized and lost conciousness prompting his sister to alert EMS. In the ED, facial laceration was repaired and imaging was negative for acute pathology however patient was unsteady with ambulation prompting admission to telemetry for syncope. Initial Labwork reveals Anemia (Hgb ~15 in October 2019). Hematology/oncology consulted for anemia. THis is the first time patient has syncopiezed. He denies any personal or family hx of anemia. Patient says he has never had a colonoscopy in the past and denies any FHx of Colon Ca. Endorses generalized weakness + unsteady gait at baseline. Denies any presyncopal sx's. Denies any fevers, chills, chest pain, SOB, nausea, vomiting, diarrhea, constipation. Denies any recent travel. PMHx: as per HPI PSHx: BMT, Appendectomy Social Hx: Denies Tobacco, EtOH or Drug use. Previously employed as a [employer]. Ambulation without assistance. Now resides with his sister. FHx: Mother with HTN, CHF, DM, hemorrhagic CVA, DVT. Father at age 38. Brother with Non-Hodgkins lymphoma. REVIEW OF SYSTEMS: As per HPI PHYSICAL EXAMINATION Vital Signs Temperature 97.6 F 03/26/20 14:00 Pulse Rate 95 H 03/26/20 14:27 Respiratory Rate 16 03/26/20 06:24 Blood Pressure 106/60 03/26/20 14:27 O2 Sat by Pulse Oximetry (%) 95 03/26/20 14:00 GENERAL: A&Ox3, NAD HEAD: Repaired right chin superficial laceration, No active bleeding EYES: PERRL, EOMI EARS, NOSE, THROAT: Moist mucous membranes. NECK: Supple LUNGS: Diminished breath sounds at the bases, No wheezes HEART: Regular rate and rhythm, normal S1 and S2 without murmur, CHEST: Right side tasha-cath, no overlying erythema ABDOMEN: Soft, nontender, not distended, + bowel sounds, no guarding EXTREMITIES: No edema. R Lateral posterior forearm Phlebitits NEUROLOGICAL: Cranial nerves II-XII intact. RUE and RLE weakness with muscle strength testing. SKIN: Warm, dry Laboratory Last Values WBC 6.9 K/mm3 (4.0-10.0) 03/26/20 06:33 RBC 3.51 M/mm3 (4.00-5.60) L 03/26/20 06:33 Hgb 9.8 GM/dL (11.7-16.9) L 03/26/20 06:33 Hct 29.7 % (35.4-49) L 03/26/20 06:33 MCV 84.6 fl (80-96) 03/26/20 06:33 MCH 27.9 pg (25.7-33.7) 03/26/20 06:33 MCHC 33.0 g/dl (32.0-35.9) 03/26/20 06:33 RDW 15.9 % (11.9-15.9) 03/26/20 06:33 Plt Count 249 K/MM3 (134-434) 03/26/20 06:33 MPV 9.4 fl (7.5-11.1) 03/26/20 06:33 Absolute Neuts (auto) 4.0 K/mm3 (1.5-8.0) 03/26/20 06:33 Neutrophils % 58.2 % (42.8-82.8) D 03/26/20 06:33 Neutrophils % (Manual) 62.4 % (42.8-82.8) D 03/26/20 06:33 Band Neutrophils % 1.0 % 03/26/20 06:33 Lymphocytes % 24.1 % (8-40) D 03/26/20 06:33 Lymphocytes % (Manual) 10.9 % (8-40) 03/26/20 06:33 Monocytes % 16.7 % (3.8-10.2) H 03/26/20 06:33 Monocytes % (Manual) 14 % (3.8-10.2) H D 03/26/20 06:33 Eosinophils % 0.1 % (0-4.5) D 03/26/20 06:33 Eosinophils % (Manual) 1.0 % (0-4.5) 03/26/20 06:33 Basophils % 0.9 % (0-2.0) 03/26/20 06:33 Basophils % (Manual) 1.0 % (0-2.0) 03/26/20 06:33 Myelocytes % (Man) 0 % (0-2) D 03/26/20 06:33 Promyelocytes % (Man) 0 % (0-2) 03/26/20 06:33 Blast Cells % (Manual) 0 % (0-0) 03/26/20 06:33 Nucleated RBC % 0 % (0-0) 03/26/20 06:33 Metamyelocytes 2 % (0-2) 03/26/20 06:33 Hypochromia 0 03/26/20 06:33 Platelet Estimate Normal 03/26/20 06:33 Anisocytosis 0 03/26/20 06:33 Microcytosis 0 03/26/20 06:33 Macrocytosis 0 03/26/20 06:33 PT with INR 11.30 SEC (9.7-13.0) 03/25/20 20:12 INR 0.96 (0.83-1.09) 03/25/20 20:12 PTT (Actin FS) 27.1 SECONDS (25.2-36.5) 03/25/20 20:12 VBG pH 7.457 (7.310-7.410) H 03/25/20 20:12 POC VBG pCO2 38.7 mmHg (38-52) 03/25/20 20:12 POC VBG pO2 54.2 mmHg (28-48) H 03/25/20 20:12 VBG HCO3 26.7 mmol/L (23-29) 03/25/20 20:12 VBG O2 Sat (Giorgio) 89.8 % (70-80) H 03/25/20 20:12 VBG Base Excess 2.8 mmol/L (-2-2) H 03/25/20 20:12 Sodium 141 mmol/L (136-145) 03/26/20 06:33 Potassium 4.4 mmol/L (3.5-5.1) 03/26/20 06:33 Chloride 107 mmol/L (98-107) 03/26/20 06:33 Carbon Dioxide 27 mmol/L (21-32) 03/26/20 06:33 Anion Gap 7 MMOL/L (8-16) L 03/26/20 06:33 BUN 10.4 mg/dL (7-18) 03/26/20 06:33 Creatinine 0.7 mg/dL (0.55-1.3) 03/26/20 06:33 Est GFR (CKD-EPI)AfAm 121.41 03/26/20 06:33 Est GFR (CKD-EPI)NonAf 104.76 03/26/20 06:33 Random Glucose 106 mg/dL (74-106) 03/26/20 06:33 Lactic Acid 1.6 mmol/L (0.4-2.0) 03/25/20 20:12 Calcium 8.4 mg/dL (8.5-10.1) L 03/26/20 06:33 Phosphorus 2.7 mg/dL (2.5-4.9) 03/25/20 20:12 Magnesium 2.2 mg/dL (1.8-2.4) 03/26/20 06:33 Iron 55 ug/dL (50-175) 03/26/20 06:33 TIBC 219 ug/dL (250-450) L 03/26/20 06:33 Iron Saturation 25 % (17.5-39) 03/26/20 06:33 Unsaturated IBC 164 ug/dL (200-275) L 03/26/20 06:33 Ferritin 758.9 ng/ml (8-388) H 03/26/20 06:33 Total Bilirubin 0.7 mg/dL (0.2-1) 03/26/20 06:33 AST 51 U/L (15-37) H 03/26/20 06:33 ALT 34 U/L (13-61) 03/26/20 06:33 Alkaline Phosphatase 145 U/L (45-117) H 03/26/20 06:33 Creatine Kinase 398 U/L (26-308) H 03/25/20 20:12 Creatine Kinase Index 1.1 % (0.0-5.0) 03/25/20 20:12 CK-MB (CK-2) 4.6 ng/mL (0.5-3.6) H 03/25/20 20:12 Troponin I < 0.02 ng/ml (0.00-0.05) 03/26/20 06:33 Total Protein 6.4 g/dl (6.4-8.2) 03/26/20 06:33 Albumin 3.0 g/dl (3.4-5.0) L 03/26/20 06:33 Triglycerides 526 mg/dL (0-150) H 03/25/20 20:12 Triglycerides Cancelled 03/25/20 20:12 Cholesterol 373 mg/dL (50-200) H 03/25/20 20:12 Cholesterol Cancelled 03/25/20 20:12 Total LDL Cholesterol 265 mg/dL (5-100) H 03/25/20 20:12 Total LDL Cholesterol Cancelled 03/25/20 20:12 HDL Cholesterol 36 mg/dL (40-60) L 03/25/20 20:12 HDL Cholesterol Cancelled 03/25/20 20:12 Vitamin B12 3524 pg/ml (193-986) H 03/26/20 06:33 TSH 1.13 uIU/ml (0.358-3.74) 03/26/20 06: Free T4 1.02 ng/dl (0.76-1.16) 03/26/20 06:33 Blood Type O POSITIVE 03/25/20 20:12 Antibody Screen Negative 03/25/20 20:12 ASSESSMENT/PLAN: 55 y/o M PMHx HTN, HLD, Hodgkin Lymphoma (recent BMT, previously treated with Ch emo, Follows Dr. Brar), presents after a syncopal episode with sustained a facial laceration. Endorses fatigue and weakness. Initial Labwork reveals Anemia (Hgb ~15 in October 2019). No gross bleeding, No hx of C-Scope. Hematology consulted for anemia. #Hodgkin Lymphoma -In the setting of recent BMT, previously treated with Chemo -R/O Sepsis given leukocytosis -Would consult ID for R Lateral posterior forearm Phlebitits -Close outpatient Followup with Dr. Brar -Physical therapy for deconditioning #Normocytic Normochromic Anemia -In the setting of recent BMT + Chemotherapy -Check FOBT, Iron Studies, Retic Count -Transfuse to keep Hgb > 7.0 Dispo: We will continue to follow the patient. Thank you for this consultative opportunity. Visit type - Emergency Visit Emergency Visit: Yes ED Registration Date: 03/25/20 Care time: The patient presented to the Emergency Department on the above date and was hospitalized for further evaluation of their emergent condition. - New Patient This patient is new to me today: Yes Date on this admission: 03/27/20 - Critical Care Critical Care patient: No ATTENDING PHYSICIAN STATEMENT I saw and evaluated the patient. I reviewed the resident's note and discussed the case with the resident. I agree with the resident's findings and plan as documented. SUBJECTIVE: OBJECTIVE: ASSESSMENT AND PLAN:
[2020-03-26] MEDS ORDERED: ROSUVASTATIN CA 20 MG TABLET (FP) PO SCH (22:00)
--- NOTE | 2020-03-26 22:27 | PN ---
Teaching Attending Note Name of Resident: Chano Brar ATTENDING PHYSICIAN STATEMENT I saw and evaluated the patient. I reviewed the resident's note and discussed the case with the resident. I agree with the resident's findings and plan as documented. ASSESSMENT AND PLAN: 55 y/o patient with relapsed Hodgkins disease s/p autologous SCT on 03/06/20, comes in with weakness, unsteady gait and syncope Rt. forearm cellulitis check cx/ keflex syncope w/u -- telemetry/cardio/ neur consults physical therapy
[2020-03-26 22:49] VITALS: BMI 27.6
[2020-03-26] MEDS: CEPHALEXIN MONOHYDRATE 500 MG CAPSULE (UD) PO SCH (23:15)
[2020-03-27] MEDS: CEPHALEXIN MONOHYDRATE 500 MG CAPSULE (UD) PO SCH ×2 (06:22→13:38)
[2020-03-27] MEDS: LACTATED RINGERS SOLUTION 1,000 ML/1,000 ML INFUS.BAG IV SCH (06:23)
[2020-03-27 09:30] VITALS: TEMP 98.2
--- NOTE | 2020-03-27 09:53 | PN ---
Physical Exam: SUBJECTIVE: Patient seen and examined this AM. OBJECTIVE: Vital Signs Period Temp Pulse Resp BP Sys/Patel Pulse Ox Last 24 Hr 97.4 F-98.3 F 70-132 18-20 101-120/60-77 94-98 GENERAL: A&Ox3, NAD HEAD: Repaired right chin superficial laceration, No active bleeding EYES: PERRL, EOMI EARS, NOSE, THROAT: Moist mucous membranes. NECK: Supple LUNGS: Diminished breath sounds at the bases, No wheezes HEART: Regular rate and rhythm, normal S1 and S2 without murmur, CHEST: Right side tasha-cath, no overlying erythema ABDOMEN: Soft, nontender, not distended, + bowel sounds, no guarding EXTREMITIES: No edema. R Lateral posterior forearm Phlebitits NEUROLOGICAL: Cranial nerves II-XII intact. RUE and RLE weakness with muscle strength testing. SKIN: Warm, dry Laboratory Last Values WBC 6.9 K/mm3 (4.0-10.0) 03/26/20 06:33 RBC 3.51 M/mm3 (4.00-5.60) L 03/26/20 06:33 Hgb 9.8 GM/dL (11.7-16.9) L 03/26/20 06:33 Hct 29.7 % (35.4-49) L 03/26/20 06:33 MCV 84.6 fl (80-96) 03/26/20 06:33 MCH 27.9 pg (25.7-33.7) 03/26/20 06:33 MCHC 33.0 g/dl (32.0-35.9) 03/26/20 06:33 RDW 15.9 % (11.9-15.9) 03/26/20 06:33 Plt Count 249 K/MM3 (134-434) 03/26/20 06:33 MPV 9.4 fl (7.5-11.1) 03/26/20 06:33 Absolute Neuts (auto) 4.0 K/mm3 (1.5-8.0) 03/26/20 06:33 Neutrophils % 58.2 % (42.8-82.8) D 03/26/20 06:33 Neutrophils % (Manual) 62.4 % (42.8-82.8) D 03/26/20 06:33 Band Neutrophils % 1.0 % 03/26/20 06:33 Lymphocytes % 24.1 % (8-40) D 03/26/20 06:33 Lymphocytes % (Manual) 10.9 % (8-40) 03/26/20 06:33 Monocytes % 16.7 % (3.8-10.2) H 03/26/20 06:33 Monocytes % (Manual) 14 % (3.8-10.2) H D 03/26/20 06:33 Eosinophils % 0.1 % (0-4.5) D 03/26/20 06:33 Eosinophils % (Manual) 1.0 % (0-4.5) 03/26/20 06:33 Basophils % 0.9 % (0-2.0) 03/26/20 06:33 Basophils % (Manual) 1.0 % (0-2.0) 03/26/20 06:33 Myelocytes % (Man) 0 % (0-2) D 03/26/20 06:33 Promyelocytes % (Man) 0 % (0-2) 03/26/20 06:33 Blast Cells % (Manual) 0 % (0-0) 03/26/20 06:33 Nucleated RBC % 0 % (0-0) 03/26/20 06:33 Metamyelocytes 2 % (0-2) 03/26/20 06:33 Hypochromia 0 03/26/20 06:33 Platelet Estimate Normal 03/26/20 06:33 Anisocytosis 0 03/26/20 06:33 Microcytosis 0 03/26/20 06:33 Macrocytosis 0 03/26/20 06:33 PT with INR 11.30 SEC (9.7-13.0) 03/25/20 20:12 INR 0.96 (0.83-1.09) 03/25/20 20:12 PTT (Actin FS) 27.1 SECONDS (25.2-36.5) 03/25/20 20:12 VBG pH 7.457 (7.310-7.410) H 03/25/20 20:12 POC VBG pCO2 38.7 mmHg (38-52) 03/25/20 20:12 POC VBG pO2 54.2 mmHg (28-48) H 03/25/20 20:12 VBG HCO3 26.7 mmol/L (23-29) 03/25/20 20:12 VBG O2 Sat (Giorgio) 89.8 % (70-80) H 03/25/20 20:12 VBG Base Excess 2.8 mmol/L (-2-2) H 03/25/20 20:12 Sodium 141 mmol/L (136-145) 03/26/20 06:33 Potassium 4.4 mmol/L (3.5-5.1) 03/26/20 06:33 Chloride 107 mmol/L (98-107) 03/26/20 06:33 Carbon Dioxide 27 mmol/L (21-32) 03/26/20 06:33 Anion Gap 7 MMOL/L (8-16) L 03/26/20 06:33 BUN 10.4 mg/dL (7-18) 03/26/20 06:33 Creatinine 0.7 mg/dL (0.55-1.3) 03/26/20 06:33 Est GFR (CKD-EPI)AfAm 121.41 03/26/20 06:33 Est GFR (CKD-EPI)NonAf 104.76 03/26/20 06:33 Random Glucose 106 mg/dL (74-106) 03/26/20 06:33 Lactic Acid 1.6 mmol/L (0.4-2.0) 03/25/20 20:12 Calcium 8.4 mg/dL (8.5-10.1) L 03/26/20 06:33 Phosphorus 2.7 mg/dL (2.5-4.9) 03/25/20 20:12 Magnesium 2.2 mg/dL (1.8-2.4) 03/26/20 06:33 Iron 55 ug/dL (50-175) 03/26/20 06:33 TIBC 219 ug/dL (250-450) L 03/26/20 06:33 Iron Saturation 25 % (17.5-39) 03/26/20 06:33 Unsaturated IBC 164 ug/dL (200-275) L 03/26/20 06:33 Ferritin 758.9 ng/ml (8-388) H 03/26/20 06:33 Total Bilirubin 0.7 mg/dL (0.2-1) 03/26/20 06:33 AST 51 U/L (15-37) H 03/26/20 06:33 ALT 34 U/L (13-61) 03/26/20 06:33 Alkaline Phosphatase 145 U/L (45-117) H 03/26/20 06:33 Creatine Kinase 398 U/L (26-308) H 03/25/20 20:12 Creatine Kinase Index 1.1 % (0.0-5.0) 03/25/20 20:12 CK-MB (CK-2) 4.6 ng/mL (0.5-3.6) H 03/25/20 20:12 Troponin I < 0.02 ng/ml (0.00-0.05) 03/26/20 13:40 Total Protein 6.4 g/dl (6.4-8.2) 03/26/20 06:33 Albumin 3.0 g/dl (3.4-5.0) L 03/26/20 06:33 Triglycerides 526 mg/dL (0-150) H 03/25/20 20:12 Triglycerides Cancelled 03/25/20 20:12 Cholesterol 373 mg/dL (50-200) H 03/25/20 20:12 Cholesterol Cancelled 03/25/20 20:12 Total LDL Cholesterol 265 mg/dL (5-100) H 03/25/20 20:12 Total LDL Cholesterol Cancelled 03/25/20 20:12 HDL Cholesterol 36 mg/dL (40-60) L 03/25/20 20:12 HDL Cholesterol Cancelled 03/25/20 20:12 Vitamin B12 3524 pg/ml (193-986) H 03/26/20 06:33 TSH 1.13 uIU/ml (0.358-3.74) 03/26/20 06:33 Free T4 1.02 ng/dl (0.76-1.16) 03/26/20 06:33 Blood Type O POSITIVE 03/25/20 20:12 Antibody Screen Negative 03/25/20 20:12 ASSESSMENT/PLAN: 55 y/o M PMHx HTN, HLD, Hodgkin Lymphoma (recent BMT, previously treated with Chemo, Follows Dr. Brar), presents after a syncopal episode with sustained a facial laceration. Endorses fatigue and weakness. Initial Labwork reveals Anemia (Hgb ~15 in October 2019). No gross bleeding, No hx of C-Scope. Hematology consulted for anemia. #Hodgkin Lymphoma -In the setting of recent BMT, previously treated with Chemo -R/O Sepsis given leukocytosis -Would consult ID for R Lateral posterior forearm Phlebitits -Close outpatient Followup with Dr. Brar -Physical therapy for deconditioning #Normocytic Normochromic Anemia -In the setting of recent BMT + Chemotherapy -Check FOBT, Iron Studies, Retic Count -Transfuse to keep Hgb > 7.0 Dispo: We will continue to follow the patient. Thank you for this consultative opportunity. Visit type - Emergency Visit Emergency Visit: Yes ED Registration Date: 03/25/20 Care time: The patient presented to the Emergency Department on the above date and was hospitalized for further evaluation of their emergent condition. - New Patient This patient is new to me today: No - Critical Care Critical Care patient: No - Discharge Referral Referred to [facility] No ATTENDING PHYSICIAN STATEMENT I saw and evaluated the patient. I reviewed the resident's note and discussed the case with the resident. I agree with the resident's findings and plan as documented. SUBJECTIVE: OBJECTIVE: ASSESSMENT AND PLAN:
[2020-03-27] MEDS: valACYclovir HCL 500 MG TABLET (FP) PO SCH (10:23)
--- NOTE | 2020-03-27 11:31 | PN ---
Progress Note (short form) - Note Progress Note: ID CONSULT DICTATED PHLEBITIS R FOREARM, CATHETER RELATED BC (-) S/P BM TRANSPLANT CONTINUE PO KEFLEX WARM COMPRESSES PRN
--- NOTE | 2020-03-27 11:50 | DS ---
Physical Examination Vital Signs: Vital Signs Temperature 98.2 F 03/27/20 09:00 Pulse Rate 70 03/27/20 09:00 Respiratory Rate 18 03/27/20 09:00 Blood Pressure 117/70 03/27/20 09:00 O2 Sat by Pulse Oximetry (%) 94 L 03/27/20 09:00 Findings/Remarks: WEAKNESS, STILL HAS LEG PAIN Constitutional: Yes: Mild Distress Cardiovascular: Yes: Regular Rate and Rhythm Respiratory: Yes: Diminished Gastrointestinal: Yes: Soft Musculoskeletal: Yes: Muscle Weakness Neurological: Yes: Weakness Labs: CBC, BMP 03/26/20 06:33 03/26/20 06:33 Discharge Summary Problems reviewed: Yes Reason For Visit: UNSTEADY GAIT WHEN WALKING, HISTORY OF HODGKINS Current Active Problems Anemia (Acute) Encounter for screening laboratory testing for COVID-19 virus (Acute) Facial trauma (Acute) Fall (Acute) History of Hodgkin's lymphoma (Acute) Hodgkin's lymphoma (Acute) Hyperlipidemia (Acute) Laceration (Acute) Syncope (Acute) Syncope, near (Acute) Unsteady gait when walking (Acute) Procedures: Principal: LABS/SCANS Hospital Course: ADMITTED FOR SYNCOPE WORKUP, LEG WEKNESS, PHLEBITIS TREATED IV ABX, PT, 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 Condition: Stable - Instructions Diet, Activity, Other Instructions: SEE DR MUNOZ IN 1-2 WEEKS COMPLETE ANTIBIOTICS FOR 5 DAYS USE A CANE OR WALKER FOR BETTER GAIT BALANCE Referrals: Lorne Munoz MD [Primary Care Provider] - - Home Medications Comprehensive Discharge Medication List: Ambulatory Orders Amlodipine Besylate 5 mg PO DAILY 08/06/19 Cephalexin Monohydrate [Keflex -] 500 mg PO BID #20 capsule 03/25/20 Fluconazole 200 mg PO 03/25/20 Rosuvastatin Calcium [Crestor] 20 mg PO DAILY 03/25/20 Valacyclovir HCl [Valacyclovir] 500 mg PO DAILY 03/25/20 Cephalexin Monohydrate [Keflex -] 500 mg PO TID #15 capsule 03/27/20 Rosuvastatin [Crestor -] 20 mg PO HS tablet 03/27/20 Valacyclovir HCl [Valtrex -] 500 mg PO DAILY tablet 03/27/20
[2020-03-27 13:37] VITALS: BP 112/74; PULSE 84
--- NOTE | 2020-03-27 14:27 | PN ---
Teaching Attending Note Name of Resident: Brittany Zendejas ATTENDING PHYSICIAN STATEMENT I saw and evaluated the patient. I reviewed the resident's note and discussed the case with the resident. I agree with the resident's findings and plan as documented. 55y M with relapsed Hodgkins Lymphoma s/p auto SCT on 03/06/20 presents with weakness and syncope after bathing and head strike with facial lac c/b right arm cellulitis currently on Keflex. He is stable for dc today. Patient to follow up with his print washer, Dr Brar. I have also informed Dr Brar of his hospital stay/course.
--- NOTE | 2020-03-27 15:14 | CONS ---
INFECTIOUS DISEASE CONSULTATION DATE OF CONSULTATION: DATE OF DICTATION: 03/27/2020 HISTORY: The patient is a 55-year-old male who is evaluated for phlebitis of the right forearm. He was recently discharged from [facility] on March 20, 2020, after undergoing a bone marrow transplant on March 06, 2020. He reports that while he was there he had developed a phlebitis at an IV catheter site. He is now admitted on March 25, 2020, after a mechanical fall and near-syncopal episode. He sustained a facial laceration. Patient was admitted to the telemetry unit. He was noted to have a mild phlebitis of the right forearm. Patient states he did have an IV catheter present in the right forearm at [facility]. He denies any pain at the present time. No fever or chills. Blood cultures were obtained and are negative. PAST MEDICAL HISTORY: Positive for Hodgkin's lymphoma diagnosed in 2017. He is status post chemotherapy. He is status post bone marrow transplant in February 2020. Past medical history also positive for hypertension, hyperlipidemia. PAST SURGICAL HISTORY: Status post appendectomy. ALLERGIES: No known allergies. MEDICATIONS: Include Keflex, Valtrex, Crestor. SOCIAL HISTORY: He resides at home in the community. He is a nonsmoker, nondrinker. SYSTEMS REVIEW: Neurologic: No loss of consciousness, seizure activity, focal weakness. Cardiac: Negative chest pain or palpitations. Respiratory: Negative cough or sputum production. Gastrointestinal: Negative vomiting or diarrhea. Genitourinary: Negative for urinary tract infection. LABORATORY DATA: White count 11.6, hematocrit 29.7, platelet count 249. Creatinine 0.7. COVID-19 negative. Blood cultures negative. PHYSICAL EXAMINATION: General: He is awake and alert. He is not acutely toxic appearing. Vital Signs: Temperature 98.7, blood pressure 117/70, pulse 70 regular, respirations 18 per minute. HEENT: Sclerae are anicteric. Heart: Sounds S1, S2. Lungs: Clear. Abdomen: Soft, nontender. Extremities: Pedal edema 1+. Examination of the right forearm there is a 2 cm area of induration and erythema present on the extensor aspect of the left forearm. There is no fluctuance or crepitus, no expressible pus, no lymphangitic streaking. IMPRESSION: 1. Phlebitis right forearm catheter related. 2. No evidence of catheter-related bacteremia at this time. 3. Hodgkin's lymphoma. 4. Status post bone marrow transplant. Continue oral Keflex. Warm compresses as needed. Have patient follow up at [facility]. Thank you for the kind referral. JODEE NASCIMENTO M.D. JENNY/[id number]
--- NOTE | 2020-03-27 15:28 | CONS ---
DATE OF CONSULTATION: DATE OF DICTATION: 03/27/2020 ADDENDUM PHYSICAL EXAMINATION: HEENT: There is a sutured laceration present right chin without evidence of infection. Arjun [id number]
--- NOTE | 2020-03-27 18:56 | CONSULT ---
Consult - text type - Consultation Consultation Note: NEUROLOGY CONSULTATION: Patient was discharged prior to consultation. Office consult, if desired, for assessment of gait unsteadiness and possible syncope. Thank you very much, David Weaver MD
== END 2020-03-27 15:30 | disposition home health service (06) ==
LOC: JER 18:41 → INTOOBSV 23:23 → JERBED 23:23 → J4W 03-26 21:10
PROVIDERS: ADMIT Internal Medicine; ATTEND Family Medicine
PROC: 3E033NZ Introduction of Analgesics, Hypnotics, Sedatives into Peripheral Vein, Percutaneous Approach (ICD-10-PCS; principal; 2020-03-25)
PROC: 3E0337Z Introduction of Electrolytic and Water Balance Substance into Peripheral Vein, Percutaneous Approach (ICD-10-PCS; 2020-03-25)
DX: R55 Syncope and collapse (principal); S01.81XA Laceration without foreign body of other part of head, initial encounter; C85.80 Other specified types of non-Hodgkin lymphoma, unspecified site; R53.1 Weakness; I10 Essential (primary) hypertension; E78.5 Hyperlipidemia, unspecified; Z92.21 Personal history of antineoplastic chemotherapy; R26.81 Unsteadiness on feet; Z99.89 Dependence on other enabling machines and devices; I80.9 Phlebitis and thrombophlebitis of unspecified site; D64.9 Anemia, unspecified; W18.30XA Fall on same level, unspecified, initial encounter; Y93.89 Activity, other specified; Y92.89 Other specified places as the place of occurrence of the external cause
CPT/HCPCS: 36415; 70450-TC; 70486-TC; 71045-TC-FY; 72125-TC; 80053; 80061; 82550; 82553; 82607; 82728; 82803; 83540; 83550; 83605; 83721; 83735; 84100; 84439; 84443; 84484; 85025; 85610; 85730; 86850; 86900; 86901; 87040; 93005; 93010; 97116-GP; 97161-GP; 99285-25; C9803; G0378; J0131; U0003